=== PATIENT | male | born 1955 | race Caucasian/White ===

== ENCOUNTER 2019-09-03 10:25 | Inpatient (IN) | payer OTHER ==
[2019-09-03] MEDS ORDERED: HEPARIN SODIUM,PORCINE 5,000 UNIT/ML 1 ML VIAL IV ONE (10:46)
[2019-09-03] MEDS ORDERED: DILTIAZEM DRIP BOLUS FROM BAG 1 MG SOLN IV ONE (10:48)
--- NOTE | 2019-09-03 10:49 | ED ---
Arrhythmia/Palpitations HPI - General Chief Complaint: Arrhythmia/Palpitations Stated Complaint: Afib Time Seen by Provider: 09/03/19 10:36 Source: patient, RN notes reviewed Mode of arrival: wheelchair Limitations: no limitations - History of Present Illness Initial Comments: 64-year-old male presents emergency Department chief complaint of A. fib. Jessica arzate was seen by PCP today and sent emergency from it for new-onset A. fib with RVR. Patient states Kali 10 days ago he noticed that he had a some cough, dizziness and some shortness of breath. Patient states that he does felt that he and upper respiratory infection. Patient noticed that he's had exertional dyspnea. Patient does admit that he's had history of hypertension states he went for refill of his medication has not been on his medications. He did have some chest discomfort that day for 10 days ago. He has no other complaints at this time. Patient denies current chest pain, palpitations, headache, blurred vision. - Related Data Home Medications Medication Instructions Recorded Confirmed Ibuprofen [Motrin Ib] 1,000 mg PO DAILY 09/03/19 09/03/19 Allergies Allergy/AdvReac Type Severity Reaction Status Date / Time No Known Allergies Allergy Unverified 09/03/19 10:59 Review of Systems ROS Statement: Those systems with pertinent positive or pertinent negative responses have been documented in the HPI. ROS Other: All systems not noted in ROS Statement are negative. Past Medical History Past Medical History: Atrial Fibrillation, Hypertension History of Any Multi-Drug Resistant Organisms: None Reported Additional Past Surgical History / Comment(s): finger amputation Past Psychological History: No Psychological Hx Reported Smoking Status: Never smoker Past Alcohol Use History: Heavy, Occasional Past Drug Use History: None Reported General Exam Limitations: no limitations General appearance: alert, in no apparent distress Head exam: Present: atraumatic, normocephalic, normal inspection Eye exam: Present: normal appearance, PERRL, EOMI. Absent: scleral icterus, conjunctival injection, periorbital swelling ENT exam: Present: normal exam, normal oropharynx, mucous membranes moist Neck exam: Present: normal inspection, full ROM. Absent: tenderness, meningismus, lymphadenopathy Respiratory exam: Present: normal lung sounds bilaterally. Absent: respiratory distress, wheezes, rales, rhonchi, stridor Cardiovascular Exam: Present: tachycardia, irregular rhythm, normal heart sounds. Absent: regular rate, normal rhythm, systolic murmur, diastolic murmur, rubs, gallop, clicks GI/Abdominal exam: Present: soft, normal bowel sounds. Absent: distended, tenderness, guarding, rebound, rigid Course Vital Signs 09/03/19 09/03/19 09/03/19 10:29 11:30 11:51 Temperature 98.1 F Pulse Rate 125 H 134 H 124 H Respiratory 18 19 20 Rate Blood Pressure 173/126 134/111 125/100 O2 Sat by Pulse 94 L 97 97 Oximetry 09/03/19 09/03/19 09/03/19 12:00 12:10 12:20 Temperature Pulse Rate 108 H 118 H 124 H Respiratory 22 24 22 Rate Blood Pressure 125/100 133/122 117/104 O2 Sat by Pulse Oximetry EKG Findings - EKG Comments: EKG Findings:: EKG interpreted by me performed at 10:46 A. fib with RVR rate of 148 QRS 84 QT/QTC 354/555 Medical Decision Making - Medical Decision Making 64-year-old male presented for palpitations. Patient be admitted for A. fib RVR with cardiology consult. - Lab Data Result diagrams: 09/03/19 10:30 09/03/19 10:30 Lab Results 09/03/19 09/03/19 09/03/19 Range/Units 10:30 10:30 10:30 WBC 6.8 (3.8-10.6) k/uL RBC 4.18 L (4.30-5.90) m/uL Hgb 15.0 (13.0-17.5) gm/dL Hct 44.7 (39.0-53.0) % MCV 106.9 H (80.0-100.0) fL MCH 35.8 H (25.0-35.0) pg MCHC 33.5 (31.0-37.0) g/dL RDW 14.0 (11.5-15.5) % Plt Count 203 (150-450) k/uL Neutrophils % 73 % Lymphocytes % 16 % Monocytes % 7 % Eosinophils % 2 % Basophils % 1 % Neutrophils # 4.9 (1.3-7.7) k/uL Lymphocytes # 1.1 (1.0-4.8) k/uL Monocytes # 0.5 (0-1.0) k/uL Eosinophils # 0.1 (0-0.7) k/uL Basophils # 0.0 (0-0.2) k/uL Macrocytosis Moderate PT 12.2 H (9.0-12.0) sec INR 1.2 H (<1.2) APTT 23.4 (22.0-30.0) sec Sodium 140 (137-145) mmol/L Potassium 4.2 (3.5-5.1) mmol/L Chloride 105 (98-107) mmol/L Carbon Dioxide 24 (22-30) mmol/L Anion Gap 11 mmol/L BUN 20 (9-20) mg/dL Creatinine 0.76 (0.66-1.25) mg/dL Est GFR (CKD-EPI)AfAm >90 (>60 ml/min/1.73 sqM) Est GFR (CKD-EPI)NonAf >90 (>60 ml/min/1.73 sqM) Glucose 120 H (74-99) mg/dL Calcium 9.5 (8.4-10.2) mg/dL Magnesium 1.6 (1.6-2.3) mg/dL Total Bilirubin 1.6 H (0.2-1.3) mg/dL AST 59 (17-59) U/L ALT 67 (21-72) U/L Alkaline Phosphatase 87 (38-126) U/L Troponin I (0.000-0.034) ng/mL NT-Pro-B Natriuret Pep pg/mL Total Protein 7.8 (6.3-8.2) g/dL Albumin 4.1 (3.5-5.0) g/dL 09/03/19 09/03/19 Range/Units 10:30 10:30 WBC (3.8-10.6) k/uL RBC (4.30-5.90) m/uL Hgb (13.0-17.5) gm/dL Hct (39.0-53.0) % MCV (80.0-100.0) fL MCH (25.0-35.0) pg MCHC (31.0-37.0) g/dL RDW (11.5-15.5) % Plt Count (150-450) k/uL Neutrophils % % Lymphocytes % % Monocytes % % Eosinophils % % Basophils % % Neutrophils # (1.3-7.7) k/uL Lymphocytes # (1.0-4.8) k/uL Monocytes # (0-1.0) k/uL Eosinophils # (0-0.7) k/uL Basophils # (0-0.2) k/uL Macrocytosis PT (9.0-12.0) sec INR (<1.2) APTT (22.0-30.0) sec Sodium (137-145) mmol/L Potassium (3.5-5.1) mmol/L Chloride (98-107) mmol/L Carbon Dioxide (22-30) mmol/L Anion Gap mmol/L BUN (9-20) mg/dL Creatinine (0.66-1.25) mg/dL Est GFR (CKD-EPI)AfAm (>60 ml/min/1.73 sqM) Est GFR (CKD-EPI)NonAf (>60 ml/min/1.73 sqM) Glucose (74-99) mg/dL Calcium (8.4-10.2) mg/dL Magnesium (1.6-2.3) mg/dL Total Bilirubin (0.2-1.3) mg/dL AST (17-59) U/L ALT (21-72) U/L Alkaline Phosphatase (38-126) U/L Troponin I 0.033 (0.000-0.034) ng/mL NT-Pro-B Natriuret Pep 1540 pg/mL Total Protein (6.3-8.2) g/dL Albumin (3.5-5.0) g/dL Critical Care Time Critical Care Time: Yes Total Critical Care Time: 35 Critical Care Time: Total 35 minutes of critical care time were used to initially evaluate the patient, reviewed past medical history, review EKG. Patient had labs, x-rays ordered. Patient found to be in A. fib with RVR, heparin low-dose was ordered including bolus, bolus of Cardizem of 10, Cardizem drip were ordered. Patient we given Lasix that he has mild pleural effusions. Patient's case discussed with attending physician and admitting physician Disposition Clinical Impression: Atrial fibrillation with RVR Disposition: ADMITTED IP TO THIS HOSP Condition: Fair Referrals: Chico Castillo DO [Primary Care Provider] - 1-2 days
[2019-09-03 11:06] LABS: Basophils % (A) 1 %; Eosinophils # (A) 0.1 k/uL (0-0.7); Eosinophils % (A) 2 %; HCT 44.7 % (39.0-53.0); Lymphocytes # (A) 1.1 k/uL (1.0-4.8); Lymphocytes % (A) 16 %; MCH 35.8 pg (25.0-35.0); MCHC 33.5 g/dL (31.0-37.0); MCV 106.9 fL (80.0-100.0); Macrocytosis Moderate; Mean Platelet Volume 7.2; Monocytes # (A) 0.5 k/uL (0-1.0); Monocytes % (A) 7 %; Neutrophils # (A) 4.9 k/uL (1.3-7.7); Neutrophils % (A) 73 %; Platelet Count 203 k/uL (150-450); RBC 4.18 m/uL (4.30-5.90); WBC 6.8 k/uL (3.8-10.6)
[2019-09-03 11:14] LABS: INR 1.2 (<1.2); Partial Thromboplastin Time 23.4 sec (22.0-30.0); Prothrombin Time 12.2 sec (9.0-12.0)
[2019-09-03 11:15] LABS: ALT 67 U/L (21-72); AST 59 U/L (17-59); African American GFR (CKD) >90 (>60 ml/min/1.73 sqM); Albumin 4.1 g/dL (3.5-5.0); Alkaline Phosphatase 87 U/L (38-126); Anion Gap 11 mmol/L; Blood Urea Nitrogen 20 mg/dL (9-20); Calcium 9.5 mg/dL (8.4-10.2); Carbon Dioxide 24 mmol/L (22-30); Chloride 105 mmol/L (98-107); Glucose 120 mg/dL (74-99); Magnesium 1.6 mg/dL (1.6-2.3); Potassium 4.2 mmol/L (3.5-5.1); Sodium 140 mmol/L (137-145); Total Bilirubin 1.6 mg/dL (0.2-1.3); Total Protein 7.8 g/dL (6.3-8.2)
--- NOTE | 2019-09-03 11:16 | XR ---
EXAMINATION TYPE: XR chest 2V DATE OF EXAM: 09/03/2019 COMPARISON: NONE HISTORY: Abnormal EKG TECHNIQUE: Frontal and lateral views of the chest are obtained. FINDINGS: There is no focal air space opacity, pulmonary vascular congestion, or pneumothorax seen. Trace bilateral pleural effusions are seen with minimal interstitial edema. The cardiac silhouette s ize is mildly enlarged. The osseous structures are intact. IMPRESSION: Trace pleural effusions, minimal interstitial edema, and enlarged cardiac mediastinal si lhouette. Findings favor decompensated congestive heart failure.
[2019-09-03] MEDS: DILTIAZEM 125 MG in SODIUM CHLORIDE 0.9% 100 ML IV SCH ×2 (11:36→23:12)
[2019-09-03] MEDS: HEPARIN SOD,PORK IN 0.45% NACL 25,000 UNIT in 0.45% NACL 1 250ML.BAG IV SCH (11:40)
[2019-09-03] MEDS ORDERED: ONDANSETRON 4 MG/2 ML VIAL IVP PRN (12:38)
[2019-09-03] MEDS ORDERED: NALOXONE 0.4 MG/ML 1 ML VIAL IV PRN (12:38)
[2019-09-03] MEDS ORDERED: FUROSEMIDE 10 MG/ML 4 ML VIAL IV STA (12:39)
[2019-09-03] MEDS: ACETAMINOPHEN TAB 325 MG TAB PO PRN (18:29)
[2019-09-03] MEDS: HEPARIN SODIUM,PORCINE 5,000 UNIT/ML 1 ML VIAL IV PRN (21:23)
[2019-09-04] MEDS: HEPARIN SOD,PORK IN 0.45% NACL 25,000 UNIT in 0.45% NACL 1 250ML.BAG IV SCH (07:46)
[2019-09-04] MEDS: HEPARIN SODIUM,PORCINE 5,000 UNIT/ML 1 ML VIAL IV PRN (08:00)
[2019-09-04] MEDS ORDERED: Potassium Replacement Protocol 1 EACH MISC MISCELLANE PRN ×2 (08:37→15:25)
[2019-09-04] MEDS ORDERED: Magnesium Replacement Protocol 1 EACH MISC MISCELLANE PRN (08:37)
[2019-09-04] MEDS: METOPROLOL SUCCINATE (ER) 50 MG TAB.ER.24H PO SCH (09:28)
[2019-09-04] MEDS: DILTIAZEM 125 MG in SODIUM CHLORIDE 0.9% 100 ML IV SCH ×2 (10:15→20:15)
--- NOTE | 2019-09-04 11:00 | ECHOF ---
Referral Reason:afib MEASUREMENTS -------- HEIGHT: 182.9 cm WEIGHT: 148.8 kg BP: RVIDd: 3.1 cm (< 3.3) IVSd: 1.2 cm (0.6 - 1.1) LVIDd: 4.5 cm (3.9 - 5.3) LVPWd: 1.4 cm (0.6 - 1.1) IVSs: 1.5 cm LVIDs: 3.4 cm LVPWs: 1.7 cm Ao Diam: 2.7 cm (2.0 - 3.7) AV Cusp: 1.2 cm (1.5 - 2.6) LA Diam: 3.8 cm (2.7 - 3.8) MV EXCURSION: 14.382 mm (> 18.000) MV EF SLOPE: 113 mm/s (70 - 150) EPSS: 1.1 cm AV maxP.41 mmHg AV meanP.32 mmHg RAP: 5.00 mmHg RVSP: 21.33 mmHg FINDINGS -------- Atrial fibrillation. This was a technically difficult study with suboptimal views. The left ventricular size is normal. There is mild concentric left ventricular hypertrophy. Overa ll left ventricular systolic function is low-normal with, an EF between 50 - 55 %. The right ventricle is normal in size. The left atrium is moderately dilated. The right atrial size is normal. Lumason used Aortic valve is trileaflet and is moderately thickened. Cannot assess stenosis. probably not severe. The mitral valve was not well visualized. The tricuspid valve was not well visualized. The pulmonic valve was not well visualized. The aortic root size is normal. IVC Not well visulized. There is no pericardial effusion. CONCLUSIONS -------- 1. Atrial fibrillation. 2. This was a technically difficult study with suboptimal views. 3. The left ventricular size is normal. 4. There is mild concentric left ventricular hypertrophy. 5. Overall left ventricular systolic function is low-normal with, an EF between 50 - 55 %. 6. The right ventricle is normal in size. 7. The left atrium is moderately dilated. 8. The right atrial size is normal. 9. Lumason used 10. Aortic valve is trileaflet and is moderately thickened. 11. The mitral valve was not well visualized. 12. The tricuspid valve was not well visualized. 13. The pulmonic valve was not well visualized. 14. The aortic root size is normal. 15. IVC Not well visulized. 16. There is no pericardial effusion. [employer] HEAD ASSISTANT: Catalina Ragland RDCS
--- NOTE | 2019-09-04 14:49 | CONS ---
CONSULTATION CHIEF COMPLAINT: Exertional shortness of breath, fatigue and tiredness. Mr. Tilley is a 64-year-old gentleman with no significant past medical history who presented to his primary care physician, Dr. Castillo with symptoms of exertional shortness of breath for the last 10 days. He initially thought he had a flu-like illness and had cough and some productive sputum, but subsequently became quite short of breath with very little activity. This went on for more than a week, went to Dr. Castillo and he was found to be in atrial fibrillation with rapid ventricular rate and had been sent to hospital for further care. At the time of my evaluation this morning, patient appears comfortable at rest. Denies chest pain or difficulty in breathing. He does not have any palpitations. There is no prior history of coronary artery disease, congestive heart failure, or cardiac arrhythmia. There is no history of focal neurological deficits. The patient has had on and off history of hypertension and had been on medications in the past which he stopped taking. PAST MEDICAL HISTORY: Negative for diabetes, dyslipidemia. MEDICATIONS: At home include ibuprofen. ALLERGIES: There are no known drug allergies. FAMILY HISTORY: Significant for hypertension. SOCIAL HISTORY: Negative for current smoking, is significant for drinking. There is no history of drug abuse. REVIEW OF SYSTEMS: HEENT: Unremarkable. CARDIAC: As described above. RESPIRATORY: As described above. GI: Negative. GENITOURINARY: Negative. ALLERGY/IMMUNOLOGY: Negative. SKIN: Negative. MUSCULOSKELETAL: Negative. ENDOCRINE: Negative. CONSTITUTIONAL: Negative. ONCOLOGICAL: Negative. Rest of the system review is not relevant. PHYSICAL EXAM: Patient is comfortable at rest. Afebrile. Heart rate is 103 beats per minute. Blood pressure is 118/83, respiratory rate is 18. Chest exam reveals diminished air entry at the bases. Heart exam reveals first and second heart sounds, irregular rhythm. No murmur. Abdomen is soft, nontender. Exam of extremities did not reveal any edema. Peripheral pulses are felt. NEUROSURGEON exam did not reveal focal neurological deficits. LABS: Show a hemoglobin of 15, platelet count of 203. Potassium is 4.2, creatinine is 0.76. BNP is elevated at 1540. Troponin is negative. Creatinine is 0.76. ASSESSMENT: 1. Persistent atrial fibrillation. 2. History of hypertension. PLAN: I am going to obtain a 2D echo on him to assess his LV function. If his LV function is normal, I am going to start him on Rythmol or flecainide. Continue the IV heparin and start him on beta blockers and once the heart rate is well controlled. Stop the IV Cardizem. The patient will need anticoagulation currently on heparin and if he is covered, I will start him either on Xarelto are Eliquis. I will obtain and once heart rate is well controlled. We will discharge him home and if he is still in atrial fibrillation, we will consider EFRAÍN with cardioversion. We will check a TSH on him. MMODL / IJN: [id number] /
--- NOTE | 2019-09-04 15:43 | P.HPIM ---
History of Present Illness H&P Date: 09/04/19 Chief Complaint: New onset atrial fibrillation This is 64-year-old gentleman with medical history of hypertension, hypercholesterol, degenerative disc disease, alcohol abuse, nicotine dependence and multiple other medical issues. Patient was sent to the ER from PCPs office related to new onset atrial fibrillation with RVR. Patient reports he did not been feeling well for 10 days with accompanying chest discomfort, weakness, exertional shortness of breath, occasional cough, dizziness, wheezing and proceeded to PCPs office. Patient apparently had been taking his antihy pertensives as well. EKG performed in office reporting atrial fibrillation with heart rates up into the 150s. Currently denies chest pain, palpitations. Denies lightheadedness dizziness or focal deficits. EKG in the ER reported atrial fibrillation with rapid ventricular rate, 148. Chest x-ray reporting trace pleural effusions, minimal interstitial edema, CHF.Cardiology consulted. Cardizem and heparin drips initiated. Scheduled Lasix IV push added to med regime. Hemoglobin 15, MCV elevated 106.9. INR 1.2, T bili 1.6. Troponin 0.033. TSH 2.22. Afebrile, normal WBC. Review of Systems ROS Statement: Those systems with pertinent positive or pertinent negative responses have been documented in the HPI. ROS Other: All systems not noted in ROS Statement are negative. Past Medical History Past Medical History: Hypertension Additional Past Medical History / Comment(s): Elevated cholesterol but not placed on medications yet, generalized pain, DDD. History of Any Multi-Drug Resistant Organisms: None Reported Past Surgical History: Orthopedic Surgery Additional Past Surgical History / Comment(s): L hand index finger amputation, R arm fracture with plate. Past Anesthesia/Blood Transfusion Reactions: No Reported Reaction Smoking Status: Never smoker - Past Family History Father Family Medical History: Cancer Additional Family Medical History / Comment(s): Father of lung cancer at age 55 or 56yrs. 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 Mother Family Medical History: AFIB, Cancer Additional Family Medical History / Comment(s): Mother of recurrent breast cancer at the age of 83 yrs. Medications and Allergies Home Medications Medication Instructions Recorded Confirmed Type Ibuprofen [Motrin Ib] 1,000 mg PO DAILY 09/03/19 09/03/19 History Allergies Allergy/AdvReac Type Severity Reaction Status Date / Time No Known Allergies Allergy Unverified 09/03/19 10:59 Physical Exam Vitals: Vital Signs Temp Pulse Pulse Resp BP BP Pulse Ox 09/04/19 07:45 98.1 F 103 H 18 118/83 93 L 09/04/19 04:00 98.0 F 80 18 163/99 93 L 09/04/19 00:00 98.0 F 97 18 147/78 91 L 09/03/19 20:00 98.2 F 111 H 18 141/95 93 L 09/03/19 16:00 98.7 F 110 H 18 158/112 95 09/03/19 14:45 98.8 F 112 H 18 142/109 95 09/03/19 14:20 108 H 20 146/103 09/03/19 14:11 113 H 18 143/103 99 09/03/19 13:40 141 H 20 166/119 09/03/19 13:20 123 H 20 147/112 09/03/19 13:00 112 H 18 129/99 09/03/19 12:40 116 H 23 131/113 09/03/19 12:20 124 H 22 117/104 09/03/19 12:10 118 H 24 133/122 09/03/19 12:00 108 H 22 125/100 09/03/19 11:51 124 H 20 125/100 97 09/03/19 11:30 134 H 19 134/111 97 09/03/19 10:29 98.1 F 125 H 18 173/126 94 L Intake and Output 09/03/19 09/04/19 09/04/19 22:59 06:59 14:59 Intake Total 334.657 262.010 240 Output Total 450 800 Balance -115.343 -537.990 240 Intake: Intake, IV Titration 94.657 262.010 Amount Diltiazem 125 mg In 106.667 Sodium Chloride 0.9% 100 ml @ 5 MG/HR 5 mls/hr IV .Q24H [facility] Rx#:[id number] Heparin Sod,Pork in 0.45% 94.657 155.343 NaCl 25,000 unit In 0.45 % NaCl 1 250ml.bag @ 6.6 UNITS/KG/HR 9.999 mls/hr IV .Q24H [facility] Rx#: [id number] Oral 240 240 Output: Urine 450 800 Other: Voiding Method Toilet Toilet Urinal Urinal Weight 149.1 kg PHYSICAL EXAM: VITAL SIGNS: [As above] GENERAL: Sitting up in bed, no acute distress HEENT: Conjunctivae normal. eyes normal. Oral mucosa moist NECK: No JVD. No thyroid enlargement. No LNs CARDIOVASCULAR: S1, S2 irregular, No murmur, rubs or gallops. RESPIRATION: Breath sounds diminished in the bases. No rhonchi or crackles. No bronchial breathing. ABDOMEN: Soft, nontender . No guarding. no masses palpable. No ascites, No he patosplenomegaly.Bowel sounds heard. LEGS: No edema. no swelling PSYCHIATRY: Alert and oriented X3, mood and affect normal. NERVOUS SYSTEM: Cranial N 2-12 grossly normal. Moves all 4 limbs. No focal deficits. Strength and sensation grossly intact.. Skin: no lesions, no rash Results CBC & Chem 7: 09/03/19 10:30 09/03/19 10:30 Labs: Abnormal Lab Results - Last 24 Hours (Table) 09/03/19 09/03/19 09/03/19 Range/Units 10:30 10:30 10:30 RBC 4.18 L (4.30-5.90) m/uL MCV 106.9 H (80.0-100.0) fL MCH 35.8 H (25.0-35.0) pg PT 12.2 H (9.0-12.0) sec INR 1.2 H (<1.2) APTT (22.0-30.0) sec Glucose 120 H (74-99) mg/dL Total Bilirubin 1.6 H (0.2-1.3) mg/dL 09/04/19 09/04/19 Range/Units 00:17 05:59 RBC (4.30-5.90) m/uL MCV (80.0-100.0) fL MCH (25.0-35.0) pg PT (9.0-12.0) sec INR (<1.2) APTT 32.0 H 41.1 H (22.0-30.0) sec Glucose (74-99) mg/dL Total Bilirubin (0.2-1.3) mg/dL Thrombosis Risk Factor Assmnt - Choose All That Apply Any of the Below Risk Factors Present?: Yes Each Factor Represents 1 point: Obesity (BMI >25) Other Risk Factors: Yes Each Risk Factor Represents 2 Points: Age 61-74 years Other congenital or acquired thrombophilia - If yes, enter type in comment: No Thrombosis Risk Factor Assessment Total Risk Factor Score: 3 Thrombosis Risk Factor Assessment Level: Moderate Risk Assessment and Plan Assessment: -New-onset persistent A. fib with RVR -Hypertension -Hyperlipidemia -Alcohol abuse -Nicotine dependence Plan: Continue on current medication regime ,monitoring and symptomatically treatment. Home meds have been reviewed and resumed accordingly. Echo ordered. Maintain Cardizem, heparin drips, IV push Lasix-cardiology evaluation in progress with further recommendations pending. The impression and plan of care has been dictated as directed. : I performed a history and examination of this patient, discussed the same with the dictator. I agree with the dictator's note ,documented as a scribe. Any additional findings or plans will be noted.
[2019-09-04] MEDS: APIXABAN 5 MG TAB PO SCH (20:53)
[2019-09-04] MEDS: ACETAMINOPHEN TAB 325 MG TAB PO PRN (20:57)
[2019-09-05 06:39] LABS: Basophils % (A) 1 %; Eosinophils # (A) 0.1 k/uL (0-0.7); Eosinophils % (A) 3 %; HCT 42.6 % (39.0-53.0); Lymphocytes % (A) 22 %; MCH 35.6 pg (25.0-35.0); MCHC 32.8 g/dL (31.0-37.0); MCV 108.6 fL (80.0-100.0); Macrocytosis Marked; Mean Platelet Volume 7.2; Monocytes # (A) 0.3 k/uL (0-1.0); Monocytes % (A) 7 %; Neutrophils # (A) 2.9 k/uL (1.3-7.7); Neutrophils % (A) 65 %; Platelet Count 174 k/uL (150-450); RBC 3.92 m/uL (4.30-5.90); RDW 14.1 % (11.5-15.5); WBC 4.5 k/uL (3.8-10.6)
[2019-09-05 06:53] LABS: African American GFR (CKD) >90 (>60 ml/min/1.73 sqM); Anion Gap 9 mmol/L; Blood Urea Nitrogen 17 mg/dL (9-20); Calcium 9.2 mg/dL (8.4-10.2); Carbon Dioxide 27 mmol/L (22-30); Chloride 102 mmol/L (98-107); Glucose 176 mg/dL (74-99); Magnesium 1.8 mg/dL (1.6-2.3); Potassium 3.9 mmol/L (3.5-5.1); Sodium 138 mmol/L (137-145)
[2019-09-05 07:06] LABS: Anisocytosis (M) Present
[2019-09-05 07:07] LABS: Polychromasia Present
[2019-09-05 07:08] LABS: Large Platelets Present
[2019-09-05] MEDS: METOPROLOL SUCCINATE (ER) 50 MG TAB.ER.24H PO SCH (08:26)
[2019-09-05] MEDS: APIXABAN 5 MG TAB PO SCH ×2 (08:26→20:40)
[2019-09-05] MEDS: PROPAFENONE 150 MG TAB PO SCH ×3 (09:30→22:13)
--- NOTE | 2019-09-05 12:10 | PN ---
PROGRESS NOTE Yaakov is a 64-year-old gentleman who is admitted to hospital with persistent atrial fibrillation. This morning, patient remains in atrial fibrillation with controlled ventricular rate. He denies chest pain, difficulty in breathing, palpitations, dizziness or syncope. An echocardiogram shows normal LV systolic function without significant left ventricular hypertrophy. He is on Eliquis 5 b.i.d. and Toprol-XL 50 mg daily. I am starting him on Rythmol 150 q.8 hours and I will watch him overnight and obtain an EKG tomorrow morning. If he is doing well, he can be discharged home with outpatient followup. If he converts to sinus rhythm with propafenone, that is well and good. If not, we will do EFRAÍN cardioversion. PHYSICAL EXAM: He is comfortable at rest. Vital signs are stable. There is no jugular venous distention. Chest exam reveals good air entry bilaterally. Heart exam reveals first and second heart sounds, no gallop, irregular rhythm. Abdomen is soft. Exam of extremities did not reveal any edema. Peripheral pulses are felt. Will do an EKG on this patient. If not, he will need a EFRAÍN cardioversion. MMODL / IJN: [id number] /
--- NOTE | 2019-09-05 16:28 | P.PN ---
Subjective Progress Note Date: 09/05/19 This is 64-year-old gentleman with medical history of hypertension, hypercholesterol, degenerative disc disease, alcohol abuse, nicotine dependence and multiple other medical issues. Patient was sent to the ER from PCPs office related to new onset atrial fibrillation with RVR. Patient reports he did not been feeling well for 10 days with accompanying chest discomfort, weakness, exertional shortness of breath, occasional cough, dizziness, wheezing and proceeded to PCPs office. Patient apparently had been taking his antihypertensives as well. EKG performed in office reporting atrial fibrillation with heart rates up into the 150s. Currently denies chest pain, palpitations. Denies lightheadedness dizziness or focal deficits. EKG in the ER reported atrial fibrillation with rapid ventricular rate, 148. Chest x-ray reporting trace pleural effusions, minimal interstitial edema, CHF.Cardiology consulted. Cardizem and heparin drips initiated. Scheduled Lasix IV push added to med regime. Hemoglobin 15, MCV elevated 106.9. INR 1.2, T bili 1.6. Troponin 0.033. TSH 2.22. Afebrile, normal WBC. 09/05/2019 telemetry reporting controlled atrial fibrillation. Echo suboptimal, reporting low normal LV function, EF 50-55%. Denies chest pain, palpitations or shortness of breath. Good diet intake with no nausea vomiting or diarrhea. Denies lightheadedness, dizziness or focal deficits. Maintained on beta mattie. Converted to oral anticoagulation with Eliquis. Cardizem drip being discontinued with Rythmol initiated.VSS. Objective - Vital Signs Vital signs: Vital Signs Temp 98.0 F 09/05/19 04:00 Pulse 76 09/05/19 04:00 Resp 18 09/05/19 04:00 BP 128/82 09/05/19 04:00 Pulse Ox 92 L 09/05/19 04:00 Intake & Output 09/04/19 09/05/19 09/05/19 18:59 06:59 18:59 Intake Total 1050.5 100 Output Total 100 Balance 950.5 100 Weight 105.8 kg Intake: IV 256 Diltiazem 125 mg In 80 Sodium Chloride 0.9% 100 ml @ 5 MG/HR 5 mls/hr IV .Q24H [facility] Rx#:[id number] Heparin Sod,Pork in 0.45% 176 NaCl 25,000 unit In 0.45 % NaCl 1 250ml.bag @ 6.6 UNITS/KG/HR 9.999 mls/hr IV .Q24H [facility] Rx#: [id number] Intake, IV Titration 110.5 100 Amount Diltiazem 125 mg In 110.5 100 Sodium Chloride 0.9% 100 ml @ 5 MG/HR 5 mls/hr IV .Q24H [facility] Rx#:[id number] Oral 684 Output: Urine 100 Other: Voiding Method Toilet Toilet Urinal Urinal # Voids 2 1 - Exam VITAL SIGNS: [As above] GENERAL: Sitting up in chair, no acute distress HEENT: Conjunctivae normal. eyes normal. Oral mucosa moist NECK: No JVD. No thyroid enlargement. No LNs CARDIOVASCULAR: S1, S2 irregular, No murmur, rubs or gallops. RESPIRATION: Breath sounds diminished in the bases. No rhonchi or crackles. No bronchial breathing. ABDOMEN: Soft, nontender . No guarding. no masses palpable. Bowel sounds heard. LEGS: No edema. no swelling PSYCHIATRY: Alert and oriented X3, mood and affect normal. NERVOUS SYSTEM: Cranial N 2-12 grossly normal. Moves all 4 limbs. No focal deficits. Strength and sensation grossly intact.. Skin: no lesions, no rash, no clubbing, no cyanosis. - Labs CBC & Chem 7: 09/05/19 05:57 09/05/19 05:57 Labs: Abnormal Lab Results - Last 24 Hours (Table) 09/04/19 09/05/19 09/05/19 Range/Units 13:57 05:57 05:57 RBC 3.92 L (4.30-5.90) m/uL MCV 108.6 H (80.0-100.0) fL MCH 35.6 H (25.0-35.0) pg Macrocytosis Marked A APTT 51.9 H (22.0-30.0) sec Glucose 176 H (74-99) mg/dL Assessment and Plan Assessment: -New-onset persistent A. fib with RVR, currently controlled ventricular rate. -Hypertension -Hyperlipidemia -Alcohol abuse -Nicotine dependence Plan: Continue on current medication regime , Eliquis, Toprol,RYTHMOL,monitoring and symptomatically treatment. Antiarrhythmics/anticoagulation as per cardiology. Potential EFRAÍN with cardioversion being discussed by cardiology, patient does not convert. Discharge planning in progress for tomorrow pending cardiology clearance. The impression and plan of care has been dictated as directed. : I performed a history and examination of this patient, discussed the same with the dictator. I agree with the dictator's note ,documented as a scribe. Any additional findings or plans will be noted.
[2019-09-05] MEDS: ACETAMINOPHEN TAB 325 MG TAB PO PRN (16:35)
[2019-09-06 06:42] LABS: African American GFR (CKD) >90 (>60 ml/min/1.73 sqM); Anion Gap 8 mmol/L; Blood Urea Nitrogen 19 mg/dL (9-20); Calcium 9.5 mg/dL (8.4-10.2); Carbon Dioxide 28 mmol/L (22-30); Chloride 102 mmol/L (98-107); Glucose 110 mg/dL (74-99); Potassium 4.4 mmol/L (3.5-5.1); Sodium 138 mmol/L (137-145)
[2019-09-06] MEDS: APIXABAN 5 MG TAB PO SCH ×2 (09:09→20:56)
[2019-09-06] MEDS: PROPAFENONE 150 MG TAB PO SCH ×3 (09:09→23:25)
[2019-09-06] MEDS: ACETAMINOPHEN TAB 325 MG TAB PO PRN (09:10)
[2019-09-06] MEDS: METOPROLOL SUCCINATE (ER) 50 MG TAB.ER.24H PO SCH (09:10)
[2019-09-06] MEDS ORDERED: PROPAFENONE 225 MG TAB PO STA (12:25)
--- NOTE | 2019-09-06 13:48 | P.PN ---
Subjective Progress Note Date: 09/06/19 This is a 64-year-old male admitted to hospital due to persistent atrial fibrillation, new onset. He is currently in a controlled rate. Initially started on Toprol-XL at 50 mg daily and yesterday Rythmol 150 mg every 8 hour was added. Repeat EKG this morning is A. fib at a rate of 98. Patient had a run of 6 beats a wide QRS probable aberrancies this morning. Around the same time, patient was complaining of feeling malaise. Patient denies any lightheadedness or dizziness, no chest pain or shortness of breath. He states he has been ambulating well in the room and briefly in the hallway without any symptoms. Gen: This is a 64-year-old male, morbid obese, resting in chair and appears comfortable and in no acute distress. HEENT: Head is atraumatic, normocephalic. Pupils equal, round. Sclerae is anicteric. NECK: Supple. No JVD. No lymphadenopathy. No thyromegaly. LUNGS: Clear to auscultation. No wheezes or rhonchi. No intercostal retractions. HEART: Irregular rate and rhythm. No murmur. ABDOMEN: Soft. Bowel sounds are present. No masses. No tenderness. EXTREMITIES: No pedal edema. No calf tenderness. NEUROLOGICAL: Patient is awake, alert and oriented x3. Cranial nerves 2 through 12 are grossly intact. Assessment: Persistent atrial fibrillation, controlled rate Normal LV systolic function without left ventricular hypertrophy Hypertension Hyper lipidemia Tobacco use and dependence Alcohol abuse Degenerative disc disease Plan: Start IV fluids 0.9 normal saline at 75 mL/h At patient's next scheduled dose of Rythmol, increased Rythmol to 450 mg 1 dose Continue Rythmol 150 mg every 8 hours Discontinue metoprolol succinate and start metoprolol tartrate 25 mg 3 times daily Continue eliquis 5 mg twice daily Anticipate discharge home tomorrow Further recommendations based on patient's clinical course Nurse practitioner note has been reviewed, I agree with documented findings and plan of care. Patient was seen and examined. Objective - Vital Signs Vital signs: Vital Signs Temp 97.7 F 09/06/19 08:00 Pulse 88 09/06/19 08:00 Resp 19 09/06/19 08:00 BP 123/84 09/06/19 08:00 Pulse Ox 96 09/06/19 08:00 Intake & Output 09/05/19 09/06/19 09/06/19 18:59 06:59 18:59 Intake Total 480 Output Total 350 Balance 130 Weight 151.7 kg Intake: Oral 480 Output: Urine 350 Other: Voiding Method Toilet Urinal # Voids 1 1 - Labs CBC & Chem 7: 09/05/19 05:57 09/06/19 05:56 Labs: Abnormal Lab Results - Last 24 Hours (Table) 09/06/19 Range/Units 05:56 Glucose 110 H (74-99) mg/dL
[2019-09-06] MEDS: SODIUM CHLORIDE 0.9% 1,000 ML IV SCH (15:12)
--- NOTE | 2019-09-06 21:12 | PN ---
PROGRESS NOTE DATE OF SERVICE: 09/06/2019 This is a progress note. I am covering for Dr. Castillo. This 64-year-old gentleman with a past medical history of multiple problems admitted with atrial fibrillation with rapid ventricular rate. New onset. Today the patient also had nonsustained tachycardia about. Cardiology following the patient. Rythmol has been initiated. No chest pain. No palpitations. No fever. PHYSICAL EXAM: Alert and oriented x3. Pulse 98. Blood pressure 129/79, respiration 18, temperature 97.5, pulse ox 93% on room air. HEENT: Conjunctivae normal. NECK: No jugular venous distention. No carotid bruit. CARDIOVASCULAR SYSTEM: S1, S2 muffled. RESPIRATORY: Breath sounds diminished in the bases. No rhonchi. No crackles. ABDOMEN: Soft, nontender. No mass palpable. LEGS: No edema. No swelling. NERVOUS SYSTEM: No focal deficits. LABS: WBC 4.2, hemoglobin 14, and sodium 138, potassium 4.4, magnesium 1.9. ASSESSMENT: 1. New onset atrial fibrillation, rapid ventricular rate, rate controlled. 2. Nonsustained ventricular tachycardia. 3. Hypertension. 4. Hyperlipidemia. 5. History of ETOH abuse. 6. History of nicotine dependence. RECOMMENDATIONS AND DISCUSSION: Recommend to continue current medications, management and symptomatic treatment. Check magnesium, Rythmol. Otherwise, continue with beta blockers. Closely follow with Cardiology. Guarded prognosis. Further recommendations to follow. MMODL / IJN: [id number] / MTDD
[2019-09-06] MEDS ORDERED: MAGNESIUM SULFATE-D5W PMX 1 GM in DEXTROSE/WATER 1 100ML.BAG IVPB ONE (21:20)
[2019-09-07] MEDS: SODIUM CHLORIDE 0.9% 1,000 ML IV SCH (06:24)
[2019-09-07 07:16] LABS: African American GFR (CKD) >90 (>60 ml/min/1.73 sqM); Anion Gap 8 mmol/L; Blood Urea Nitrogen 22 mg/dL (9-20); Calcium 9.4 mg/dL (8.4-10.2); Carbon Dioxide 28 mmol/L (22-30); Chloride 103 mmol/L (98-107); Glucose 122 mg/dL (74-99); Potassium 4.7 mmol/L (3.5-5.1); Sodium 139 mmol/L (137-145)
--- NOTE | 2019-09-07 08:16 | CONS ---
CONSULTATION Mr. Tilley remains in atrial fib but the rate is much better controlled. I tried to convert him to sinus rhythm with 450 mg of Rythmol, but he did not convert. He remains in atrial fib. Rate is in the 70s to 80s, well controlled. He is already anticoagulated with Eliquis. Plan is to send him home on propafenone 150 mg t.i.d. and metoprolol 25 mg b.i.d. with Eliquis 5 mg b.i.d. He will see Dr. Degroot in one week and in 3-4 weeks, he will have electrical cardioversion. Vitals are stable. No JVD. S1, S2 heard normally, irregular rhythm noted. Lungs are clear. Abdomen and lower extremity exam unchanged. 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 The patient can be discharged today. MMODL / IJN: [id number] /
[2019-09-07] MEDS ORDERED: METOPROLOL TARTRATE 25 MG TAB PO SCH (09:00)
[2019-09-07] MEDS: PROPAFENONE 150 MG TAB PO SCH (09:05)
[2019-09-07] MEDS: APIXABAN 5 MG TAB PO SCH (09:05)
[2019-09-07 12:01] VITALS: BP 142/88; PULSE 88; RESP 20; TEMP 97.8
--- NOTE | 2019-09-08 11:00 | DS ---
DISCHARGE SUMMARY DATE OF SERVICE: 09/07/2019. FINAL DIAGNOSES: 1. New onset atrial fibrillation, rapid ventricular rate, controlled with chronic atrial fibrillation. 2. Nonsustained ventricular tachycardia. 3. Hypertension. 4. Hyperlipidemia. 5. History of EtOH abuse. 6. History of nicotine dependence. DISCHARGE DISPOSITION: The patient is being discharged in stable condition with guarded prognosis. HISTORY OF PRESENT ILLNESS: This 62-year-old gentleman with a past medical history of multiple medical problems being followed by Dr. Castillo in the outpatient setting, was admitted with atrial fibrillation with fast ventricular rate. Rate was controlled with multiple medications. Cardiology saw the patient. Patient also had episodes of nonsustained tachycardia. Rythmol was initiated. Patient improved significantly. On exam, vitals are stable. Cardiovascular is normal. Abdomen soft. Nervous system: No focal deficits. DISCHARGE ADVICE AND MEDICATIONS: 1. Discharge diet is cardiac diet. 2. Activity limited until followup.. 3. Follow up with Dr. Castillo in 1-2 days. 4. Follow up with Dr. Degroot as recommended. DISCHARGE MEDICATIONS: 1. Eliquis 5 mg p.o. b.i.d. 2. Lopressor 25 mg p.o. b.i.d. 3. Rythmol 150 mg p.o. q.8 per Cardiology. 4. Tylenol p.r.n. Once again, the patient is being discharged in stable condition with guarded prognosis. MMMICHAELL / SHASTAN: [id number] /
== END 2019-09-07 14:20 | disposition home or self-care (01) | DRG 309 ==
LOC: EC 10:25 → 3SCARD 12:37
PROVIDERS: ADMIT Family Medicine; ATTEND Family Medicine
DX: I48.19 Other persistent atrial fibrillation (principal); Z68.42 Body mass index [BMI] 45.0-49.9, adult; E66.01 Morbid (severe) obesity due to excess calories; E78.00 Pure hypercholesterolemia, unspecified; E78.5 Hyperlipidemia, unspecified; F17.200 Nicotine dependence, unspecified, uncomplicated; I10 Essential (primary) hypertension; I47.2 Ventricular tachycardia; Z79.01 Long term (current) use of anticoagulants; Z79.899 Other long term (current) drug therapy; Z80.1 Family history of malignant neoplasm of trachea, bronchus and lung; Z80.3 Family history of malignant neoplasm of breast; Z82.49 Family history of ischemic heart disease and other diseases of the circulatory system; Z89.029 Acquired absence of unspecified finger(s)
CPT/HCPCS: 36415; 71046; 80048; 80053; 83735; 83880; 84443; 84484; 85025; 85610; 85730; 93005; 93306; 96365; 96366; 96368; 96375; 96376; 99291

== ENCOUNTER → 2019-10-09 | Day surgery (SDC) | payer OTHER ==
[2019-10-08 09:03] VITALS: BMI 43.0
[~2019-10-09] MED LIST: APIXABAN 5 MG TAB PO SCH; BENZOCAINE SPRAY 1 CAN MUCOUS MEM ONE; LACTATED RINGERS 1,000 ML IV SCH; METOPROLOL TARTRATE 12.5 MG TAB PO SCH; PROPAFENONE 150 MG TAB PO SCH; PROPOFOL 10 MG/ML 20 ML VIAL IV ONE; SODIUM CHLORIDE 0.9% 1,000 ML IV SCH
[2019-10-09 09:30] VITALS: TEMP 98.1
[2019-10-09 09:51] LABS: African American GFR (CKD) >90 (>60 ml/min/1.73 sqM); Anion Gap 9 mmol/L; Blood Urea Nitrogen 22 mg/dL (9-20); Calcium 9.7 mg/dL (8.4-10.2); Carbon Dioxide 23 mmol/L (22-30); Chloride 108 mmol/L (98-107); Glucose 140 mg/dL (74-99); Non-African American GFR(CKD) >90 (>60 ml/min/1.73 sqM); Sodium 140 mmol/L (137-145)
[2019-10-09 09:57] LABS: Potassium 4.6 mmol/L (3.5-5.1)
--- NOTE | 2019-10-09 11:19 | ECHOT ---
TRANSESOPHAGEAL ECHOCARDIOGRAM INDICATION: Persistent atrial fibrillation. PROCEDURE NOTE: After obtaining informed consent, transesophageal echocardiogram was performed in left lateral position using an Omni plane probe. Local and IV sedation were obtained by the intensive care unit registered nurse. FINDINGS: 1. There is no intracardiac thrombus within the left atrial appendage, left atrium, left ventricle, right atrium, or right ventricle. 2. Mitral valve appears anatomically normal. There is mild to moderate central mitral regurgitation noted. 3. Tricuspid valve appears normal. There is mild tricuspid regurgitation noted. 4. Aortic valve is a 3-leaflet valve. There is no evidence of aortic stenosis or regurgitation. 5. Interatrial septum, there is no evidence of [id number] shunt by agitated saline contrast study or [id number] shunt by color-flow Doppler. Aorta is free of significant atherosclerosis. CONCLUSION: 1. No intracardiac thrombus. 2. Normal left ventricular function. 3. No evidence of shunting across the interatrial septum. 4. Moderate mitral regurgitation. PLAN: Patient will undergo cardioversion. MMODL / IJN: [id number] /
[2019-10-09 11:38] VITALS: BP 126/65; PULSE 64; RESP 16
--- NOTE | 2019-10-09 11:43 | CE ---
CARDIAC ELECTROPHYSIOLOGY REPORT INDICATION: Persistent atrial fibrillation. PROCEDURE NOTE: After obtaining informed consent, the patient underwent electrical cardioversion with 300 joules of synchronized DC current. The patient converted to sinus rhythm following a single shock. He is adequately anticoagulated with Eliquis 5 b.i.d., and he is on Rythmol 150 q.8. Patient will continue these 2 medications. Patient tolerated the procedure well without any obvious immediate complications and a EFRAÍN was performed prior to rule out intracardiac thrombus. MMODL / IJN: [id number] /
--- NOTE | 2019-10-09 11:43 | LTR ---
DATE OF SERVICE: 10/09/2019 RE: Jarek Yaakov Dear [place]; I performed EFRAÍN, cardioversion on Yaakov Mejia. The detailed procedure note is enclosed for your records. Patient as you remember was admitted to hospital recently with persistent atrial fibrillation and in spite of being treated with Rythmol, he remained in atrial fibrillation. Hence, we performed a EFRAÍN and cardioverted him successfully. I will continue him on Rythmol and Eliquis for now. Thank you for allowing us to participate in the care of this pleasant gentleman. Sincerely, MD RAMA Schaffer / STEPHIE: [id number] /
== END ==
LOC: CATHCVL 09:03
PROVIDERS: ATTEND Internal Medicine Cardiovascular Disease
DX: I48.19 Other persistent atrial fibrillation (principal); I08.1 Rheumatic disorders of both mitral and tricuspid valves; I10 Essential (primary) hypertension; Z79.01 Long term (current) use of anticoagulants; Z79.899 Other long term (current) drug therapy
CPT/HCPCS: 93312; 93320; 93005; 93325; 92960; 80048; J2704

== ENCOUNTER 2021-07-08 11:37 | Inpatient (IN) | payer MEDICARE, OTHER ==
[2021-07-08] MEDS ORDERED: DILTIAZEM DRIP BOLUS FROM BAG 1 MG SOLN IV ONE (11:59)
--- NOTE | 2021-07-08 12:02 | ED ---
General Adult HPI - General Chief complaint: Arrhythmia/Palpitations Stated complaint: A Fib,SOB Time Seen by Provider: 07/08/21 11:40 Source: patient, RN notes reviewed, old records reviewed Mode of arrival: wheelchair Limitations: physical limitation - History of Present Illness Initial comments: This is a 66-year-old male who presents emergency Department with a past medical history significant for atrial fibrillation. Patient states for 3 months she's not been feeling well but he refused to going to the emergency department. Patient went to see his digital strategy manager is a digital strategy manager felt he was in A. fib with rapid ventricular response and possibly congestive heart failure so we sent to the emergency department. Patient denies any fever chills or cough. Patient denies any chest pain or pressure. Patient states he has been extremely short of breath lately. Patient states his been a little more edema to his legs normal. Patient denies any abdominal pain patient denies nausea vomiting diarrhea. Patient denies any headache patient denies numbness weakness. Patient denies lightheadedness or dizziness. - Related Data Previous Rx's Medication Instructions Recorded Acetaminophen Tab [Tylenol] 650 mg PO Q6HR PRN tab 09/07/19 Apixaban [Eliquis] 5 mg PO BID #60 tab 09/07/19 Propafenone [Rythmol] 150 mg PO Q8HR #90 tab 09/07/19 Metoprolol Tartrate [Lopressor] 12.5 mg PO BID tab 10/09/19 Allergies Allergy/AdvReac Type Severity Reaction Status Date / Time No Known Allergies Allergy Verified 07/08/21 11:47 Review of Systems ROS Statement: Those systems with pertinent positive or pertinent negative responses have been documented in the HPI. ROS Other: All systems not noted in ROS Statement are negative. Past Medical History Past Medical History: Atrial Fibrillation, Hyperlipidemia, Hypertension Additional Past Medical History / Comment(s): generalized pain, DDD, pleural effusion History of Any Multi-Drug Resistant Organisms: None Reported Past Surgical History: Orthopedic Surgery Additional Past Surgical History / Comment(s): L hand index finger amputation, R arm fracture with plate. Past Anesthesia/Blood Transfusion Reactions: No Reported Reaction Past Psychological History: No Psychological Hx Reported Past Alcohol Use History: None Reported Past Drug Use History: None Reported - Past Family History Father Family Medical History: Cancer Additional Family Medical History / Comment(s): Father of lung cancer at age 55 or 56yrs. 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 Mother Family Medical History: AFIB, Cancer Additional Family Medical History / Comment(s): Mother of recurrent breast cancer at the age of 83 yrs. General Exam - General Exam Comments Initial Comments: GENERAL: Patient is well-developed and well-nourished. Patient is nontoxic and well- hydrated and is in mild distress. ENT: Neck is soft and supple. No significant lymphadenopathy is noted. Oropharynx is clear. Moist mucous membranes. Neck has full range of motion without eliciting any pain. EYES: The sclera were anicteric and conjunctiva were pink and moist. Extraocular movements were intact and pupils were equal round and reactive to light. Eyelids were unremarkable. PULMONARY: Unlabored respirations. Good breath sounds bilaterally. No audible rales rhonchi or wheezing was noted. CARDIOVASCULAR: Patient is tachycardic at about 120 beats a minute and the rate is irregular. ABDOMEN: Soft and nontender with normal bowel sounds. No palpable organomegaly was noted. There is no palpable pulsatile mass. SKIN: Skin is clear with no lesions or rashes and otherwise unremarkable. NEUROLOGIC: Patient is alert and oriented x3. Cranial nerves II through XII are grossly intact. Motor and sensory are also intact. Normal speech, volume and content. Symmetrical smile. MUSCULOSKELETAL: Normal extremities with adequate strength and full range of motion. 1+ edema bilaterally LYMPHATICS: No significant lymphadenopathy is noted PSYCHIATRIC: Normal psychiatric evaluation. Limitations: physical limitation Course Vital Signs 07/08/21 07/08/21 11:44 12:21 Temperature 98.2 F Pulse Rate 112 H 108 H Respiratory 20 18 Rate Blood Pressure 188/107 168/121 O2 Sat by Pulse 95 109 H Oximetry Medical Decision Making - Medical Decision Making EKG shows atrial fibrillation with rapid ventricular response at 160 bpm QRS is 104 QT interval 346 QTC is 480. Patient's EKG shows no ST segment elevation or depression. Chest x-ray shows no acute abnormality. I started the patient on Cardizem and one pack and reevaluate him after one on his heart rate was noted upon 100 beats a minute still irregular. I spoke with Dr. Degroot about this patient and he wanted the patient admitted. I spoke with Dr. Castillo but the patient he agreed to admit the patient admitted the patient wrote admitting orders. - Lab Data Result diagrams: 07/08/21 12:08 07/08/21 12:08 Lab Results 07/08/21 07/08/21 07/08/21 Range/Units 12:08 12:08 12:08 WBC 7.6 (3.8-10.6) k/uL RBC 4.03 L (4.30-5.90) m/uL Hgb 15.0 (13.0-17.5) gm/dL Hct 44.7 (39.0-53.0) % MCV 111.0 H (80.0-100.0) fL MCH 37.1 H (25.0-35.0) pg MCHC 33.4 (31.0-37.0) g/dL RDW 16.1 H (11.5-15.5) % Plt Count 283 (150-450) k/uL MPV 7.3 Neutrophils % 76 % Lymphocytes % 12 % Monocytes % 7 % Eosinophils % 1 % Basophils % 1 % Neutrophils # 5.8 (1.3-7.7) k/uL Lymphocytes # 0.9 L (1.0-4.8) k/uL Monocytes # 0.5 (0-1.0) k/uL Eosinophils # 0.1 (0-0.7) k/uL Basophils # 0.0 (0-0.2) k/uL Anisocytosis Slight Macrocytosis Marked A PT 11.7 (9.0-12.0) sec INR 1.1 (<1.2) APTT 21.2 L (22.0-30.0) sec Sodium 138 (137-145) mmol/L Potassium 4.3 (3.5-5.1) mmol/L Chloride 104 (98-107) mmol/L Carbon Dioxide 23 (22-30) mmol/L Anion Gap 11 mmol/L BUN 14 (9-20) mg/dL Creatinine 0.71 (0.66-1.25) mg/dL Est GFR (CKD-EPI)AfAm >90 (>60 ml/min/1.73 sqM) Est GFR (CKD-EPI)NonAf >90 (>60 ml/min/1.73 sqM) Glucose 160 H (74-99) mg/dL Calcium 9.6 (8.4-10.2) mg/dL Magnesium 1.6 (1.6-2.3) mg/dL Total Bilirubin 1.2 (0.2-1.3) mg/dL AST 49 (17-59) U/L ALT 37 (4-49) U/L Alkaline Phosphatase 106 (38-126) U/L Troponin I (0.000-0.034) ng/mL NT-Pro-B Natriuret Pep pg/mL Total Protein 7.6 (6.3-8.2) g/dL Albumin 3.9 (3.5-5.0) g/dL TSH 1.720 (0.465-4.680) mIU/L 07/08/21 07/08/21 Range/Units 12:08 12:08 WBC (3.8-10.6) k/uL RBC (4.30-5.90) m/uL Hgb (13.0-17.5) gm/dL Hct (39.0-53.0) % MCV (80.0-100.0) fL MCH (25.0-35.0) pg MCHC (31.0-37.0) g/dL RDW (11.5-15.5) % Plt Count (150-450) k/uL MPV Neutrophils % % Lymphocytes % % Monocytes % % Eosinophils % % Basophils % % Neutrophils # (1.3-7.7) k/uL Lymphocytes # (1.0-4.8) k/uL Monocytes # (0-1.0) k/uL Eosinophils # (0-0.7) k/uL Basophils # (0-0.2) k/uL Anisocytosis Macrocytosis PT (9.0-12.0) sec INR (<1.2) APTT (22.0-30.0) sec Sodium (137-145) mmol/L Potassium (3.5-5.1) mmol/L Chloride (98-107) mmol/L Carbon Dioxide (22-30) mmol/L Anion Gap mmol/L BUN (9-20) mg/dL Creatinine (0.66-1.25) mg/dL Est GFR (CKD-EPI)AfAm (>60 ml/min/1.73 sqM) Est GFR (CKD-EPI)NonAf (>60 ml/min/1.73 sqM) Glucose (74-99) mg/dL Calcium (8.4-10.2) mg/dL Magnesium (1.6-2.3) mg/dL Total Bilirubin (0.2-1.3) mg/dL AST (17-59) U/L ALT (4-49) U/L Alkaline Phosphatase (38-126) U/L Troponin I <0.012 (0.000-0.034) ng/mL NT-Pro-B Natriuret Pep 863 pg/mL Total Protein (6.3-8.2) g/dL Albumin (3.5-5.0) g/dL TSH (0.465-4.680) mIU/L Critical Care Time Critical Care Time: Yes Total Critical Care Time: 35 Disposition Clinical Impression: Atrial fibrillation with rapid ventricular response Disposition: ADMITTED IP TO THIS HOSP Referrals: [place] Castillo DO [Primary Care Provider] - 1-2 days Time of Disposition: 13:11
[2021-07-08] MEDS: DILTIAZEM 125 MG in SODIUM CHLORIDE 0.9% 100 ML IV SCH (12:19)
[2021-07-08 12:24] LABS: Anisocytosis Slight; Basophils % (A) 1 %; Eosinophils # (A) 0.1 k/uL (0-0.7); Eosinophils % (A) 1 %; HCT 44.7 % (39.0-53.0); Lymphocytes # (A) 0.9 k/uL (1.0-4.8); Lymphocytes % (A) 12 %; MCH 37.1 pg (25.0-35.0); MCHC 33.4 g/dL (31.0-37.0); Macrocytosis Marked; Mean Platelet Volume 7.3; Monocytes # (A) 0.5 k/uL (0-1.0); Monocytes % (A) 7 %; Neutrophils # (A) 5.8 k/uL (1.3-7.7); Neutrophils % (A) 76 %; Platelet Count 283 k/uL (150-450); RBC 4.03 m/uL (4.30-5.90); RDW 16.1 % (11.5-15.5); WBC 7.6 k/uL (3.8-10.6)
[2021-07-08 12:34] LABS: ALT 37 U/L (4-49); AST 49 U/L (17-59); African American GFR (CKD) >90 (>60 ml/min/1.73 sqM); Albumin 3.9 g/dL (3.5-5.0); Alkaline Phosphatase 106 U/L (38-126); Anion Gap 11 mmol/L; Blood Urea Nitrogen 14 mg/dL (9-20); Calcium 9.6 mg/dL (8.4-10.2); Carbon Dioxide 23 mmol/L (22-30); Chloride 104 mmol/L (98-107); Glucose 160 mg/dL (74-99); Magnesium 1.6 mg/dL (1.6-2.3); Non-African American GFR(CKD) >90 (>60 ml/min/1.73 sqM); Sodium 138 mmol/L (137-145); Total Bilirubin 1.2 mg/dL (0.2-1.3); Total Protein 7.6 g/dL (6.3-8.2)
[2021-07-08 12:41] LABS: Potassium 4.3 mmol/L (3.5-5.1)
[2021-07-08 12:43] LABS: INR 1.1 (<1.2); Partial Thromboplastin Time 21.2 sec (22.0-30.0); Prothrombin Time 11.7 sec (9.0-12.0)
--- NOTE | 2021-07-08 13:02 | XR ---
EXAMINATION TYPE: XR chest 2V DATE OF EXAM: 07/08/2021 COMPARISON: 09/03/2019 HISTORY: Shortness of breath TECHNIQUE: Frontal and lateral views of the chest are obtained. FINDINGS: Scattered senescent parenchymal changes noted. Hyperinflation compatible with COPD. No evidence for infiltrate. No evidence for atelectasis. Heart size is stable. Mediastinal structures are stable and grossly unremarkable. No evidence for hilar prominence. Degenerative changes dorsal spine. IMPRESSION: 1. No evidence for acute pulmonary disease.
[2021-07-08] MEDS ORDERED: NITROGLYCERIN SL TABS 0.4 MG TAB SUBLINGUAL PRN (13:23)
[2021-07-08] MEDS ORDERED: hydrALAZINE HCL 20 MG/ML 1 ML VIAL IVP STA (14:34)
--- NOTE | 2021-07-09 08:23 | P.CRDCN ---
History of Present Illness Consult date: 07/09/21 Chief complaint: Shortness of breath and lower extremities edema History of present illness: This is a very pleasant 66-year-old gentleman with a past medical history significant for obesity as well as paroxysmal atrial fibrillation who follows with Dr. Rogel regularly. We consulted to see the patient for further evaluation of atrial fibrillation with rapid ventricular response. The patient was diagnosed with atrial fibrillation in 2019 and at that point he underwent EFRAÍN and cardioversion. Currently he has been maintaining normal sinus mechanism to about 2 months ago. For the last 2 months he has been struggling with atrial fibrillation which has been managed medically. But for the last few days he has been experiencing increasing in the shortness of breath with exertion to the level where he cannot achieve his daily activities. He developed also lower extremities edema. He gained weight but is not quite sure how much he gained. He denies any chest pain or chest discomfort and denies any dizziness or lightheadedness or any feeling of heart racing or fluttering at this point or presyncope or syncope. Currently he is on Cardizem IV at 5 mg. He is in atrial fibrillation was controlled heart rate. He does have obesity and also does have hypertension. No coronary artery disease. He stated that he snored during the night but he never been tested for sleep apnea. Clinically seems to be in heart failure with bilateral lower exam it is pitting edema and diminished breathing sounds bilaterally. The NT proBNP came in to be about 800 but he is obese. Past Medical History Past Medical History: Atrial Fibrillation, Hyperlipidemia, Hypertension Additional Past Medical History / Comment(s): generalized pain, DDD, pleural effusion History of Any Multi-Drug Resistant Organisms: None Reported Past Surgical History: Orthopedic Surgery Additional Past Surgical History / Comment(s): L hand index finger amputation, R arm fracture with plate. CARDIOVERSION 2019 Past Anesthesia/Blood Transfusion Reactions: No Reported Reaction Past Psychological History: No Psychological Hx Reported Additional Psychological History / Comment(s): Pt resides with his spouse. He workED for [employer]. Smoking Status: Never smoker Past Alcohol Use History: None Reported Additional Past Alcohol Use History / Comment(s): Pt states he chewed for one year none now Past Drug Use History: None Reported - Past Family History Father Family Medical History: Cancer Additional Family Medical History / Comment(s): Father of lung cancer at age 55 or 56yrs. He was a smoker and worked in a [employer] [place]. Mother Family Medical History: AFIB, Cancer Additional Family Medical History / Comment(s): Mother of recurrent breast cancer at the age of 83 yrs. Medications and Allergies Home Medications Medication Instructions Recorded Confirmed Type Aspirin EC [Ecotrin Low Dose] 81 mg PO DAILY 07/08/21 07/08/21 History Metoprolol Tartrate [Lopressor] 50 mg PO BID 07/08/21 07/08/21 History Propafenone [Rythmol] 150 mg PO BID 07/08/21 07/08/21 History Allergies Allergy/AdvReac Type Severity Reaction Status Date / Time No Known Allergies Allergy Verified 07/08/21 13:42 Physical Exam Vitals: Vital Signs Temp Pulse Pulse Resp BP BP Pulse Ox 07/09/21 08:12 97 07/09/21 04:00 98.3 F 99 18 160/81 98 07/09/21 02:00 95 18 07/08/21 23:36 98.0 F 95 18 166/94 96 07/08/21 20:14 98.1 F 83 18 174/102 96 07/08/21 20:00 98.1 F 83 18 174/102 96 07/08/21 19:11 97.5 F L 94 18 181/94 96 07/08/21 18:32 98.7 F 92 17 160/102 97 07/08/21 17:05 92 18 174/84 99 07/08/21 14:00 103 H 17 155/113 98 07/08/21 13:30 91 16 175/124 98 07/08/21 13:00 97 07/08/21 12:30 92 16 168/121 95 07/08/21 12:21 108 H 18 168/121 109 H 07/08/21 12:00 114 H 17 179/137 96 07/08/21 11:58 97 07/08/21 11:44 98.2 F 112 H 20 188/107 95 Intake and Output 07/08/21 07/09/21 07/09/21 22:59 06:59 14:59 Output Total 200 700 Balance -200 -700 Output: Urine 200 700 Other: Voiding Method Urinal Urinal # Voids 1 2 Weight 167.829 kg 160 kg - Constitutional General appearance: no acute distress - Respiratory Respiratory: bilateral: CTA - Cardiovascular Rhythm: regular Heart sounds: normal: S1, S2 Results 07/08/21 12:08 07/08/21 12:08 Cardiac Enzymes 07/08/21 07/08/21 07/08/21 Range/Units 12:08 12:08 18:25 AST 49 (17-59) U/L Troponin I <0.012 <0.012 (0.000-0.034) ng/mL Coagulation 07/08/21 Range/Units 12:08 PT 11.7 (9.0-12.0) sec APTT 21.2 L (22.0-30.0) sec CBC 07/08/21 Range/Units 12:08 WBC 7.6 (3.8-10.6) k/uL RBC 4.03 L (4.30-5.90) m/uL Hgb 15.0 (13.0-17.5) gm/dL Hct 44.7 (39.0-53.0) % Plt Count 283 (150-450) k/uL Comprehensive Metabolic Panel 07/08/21 Range/Units 12:08 Sodium 138 (137-145) mmol/L Potassium 4.3 (3.5-5.1) mmol/L Chloride 104 (98-107) mmol/L Carbon Dioxide 23 (22-30) mmol/L BUN 14 (9-20) mg/dL Creatinine 0.71 (0.66-1.25) mg/dL Glucose 160 H (74-99) mg/dL Calcium 9.6 (8.4-10.2) mg/dL AST 49 (17-59) U/L ALT 37 (4-49) U/L Alkaline Phosphatase 106 (38-126) U/L Total Protein 7.6 (6.3-8.2) g/dL Albumin 3.9 (3.5-5.0) g/dL Current Medications Generic Name Dose Route Start Last Admin Trade Name Freq PRN Reason Stop Dose Admin Aspirin 81 mg 07/09/21 09:00 Aspirin 81 Mg PO DAILY CHANI Furosemide 40 mg 07/09/21 09:00 Furosemide 10 Mg/Ml 4 Ml Vial IV Q12HR CHANI Heparin Sodium (Porcine) 0 unit 07/09/21 08:07 Heparin Sodium 1,000 Un/Ml (10ml Vl) IV PER PROTOCOL PRN Low PTT Protocol Diltiazem HCl 125 mg/ Sodium 125 mls @ 5 mls/hr 07/08/21 12:30 07/08/21 12:19 Chloride IV 5 mg/hr .Q24H CHANI 5 mls/hr Administration 5 MG/HR Heparin Sodium/Sodium Chloride 250 mls @ 10 mls/hr 07/09/21 08:15 25,000 unit/ Sodium Chloride IV .Q24H CHANI Protocol 6.25 UNITS/KG/HR Metoprolol Tartrate 50 mg 07/09/21 09:00 Metoprolol Tartrate 50 Mg Tab PO BID CHANI Nitroglycerin 0.4 mg 07/08/21 13:23 Nitroglycerin Sl Tabs 0.4 Mg Tab SUBLINGUAL Q5M PRN Chest Pain Propafenone HCl 150 mg 07/09/21 09:00 Propafenone 150 Mg Tab PO BID [facility] Intake and Output 07/08/21 07/09/21 07/09/21 22:59 06:59 14:59 Output Total 200 700 Balance -200 -700 Output: Urine 200 700 Other: Voiding Method Urinal Urinal # Voids 1 2 Weight 167.829 kg 160 kg 07/08/21 12:08 07/08/21 12:08 Assessment and Plan Assessment: Assessment #1 persistent atrial fibrillation #2 hypertension #3 obesity #4 heart failure with unknown a chill G Plan #1 continue the current dose of Cardizem IV #2 restart the patient on metoprolol tartrate orally which is his home dose #3 start the patient on anticoagulation with heparin #4 start the patient on Lasix IV #5 obtain an echo We will continue following up with the patient
[2021-07-09] MEDS ORDERED: ASPIRIN 325 MG TAB PO SCH (09:00)
[2021-07-09] MEDS: METOPROLOL TARTRATE 50 MG TAB PO SCH ×2 (09:14→20:43)
[2021-07-09] MEDS: PROPAFENONE 150 MG TAB PO SCH ×2 (09:14→20:42)
[2021-07-09] MEDS: ASPIRIN 81 MG PO SCH (09:15)
[2021-07-09] MEDS: FUROSEMIDE 10 MG/ML 4 ML VIAL IV SCH ×2 (09:16→20:42)
[2021-07-09 09:27] LABS: Anisocytosis Slight; Basophils % (A) 1 %; Eosinophils # (A) 0.1 k/uL (0-0.7); Eosinophils % (A) 3 %; HGB 13.6 gm/dL (13.0-17.5); Lymphocytes # (A) 0.8 k/uL (1.0-4.8); Lymphocytes % (A) 14 %; MCH 37.7 pg (25.0-35.0); MCV 110.8 fL (80.0-100.0); Macrocytosis Marked; Mean Platelet Volume 7.1; Monocytes # (A) 0.4 k/uL (0-1.0); Monocytes % (A) 7 %; Neutrophils # (A) 3.9 k/uL (1.3-7.7); Neutrophils % (A) 72 %; Platelet Count 235 k/uL (150-450); RBC 3.62 m/uL (4.30-5.90); RDW 16.3 % (11.5-15.5); WBC 5.4 k/uL (3.8-10.6)
[2021-07-09] MEDS: HEPARIN SOD,PORK IN 0.45% NACL 25,000 UNIT in 0.45% NACL 1 250ML.BAG IV SCH (09:30)
[2021-07-09 09:44] LABS: INR 1.1 (<1.2); Partial Thromboplastin Time 22.1 sec (22.0-30.0); Prothrombin Time 11.6 sec (9.0-12.0)
[2021-07-09] MEDS: HEPARIN SODIUM 1,000 UN/ML (10ML VL) IV PRN ×2 (09:45→17:34)
[2021-07-09 12:01] LABS: Chol/HDL Ratio 4.34
--- NOTE | 2021-07-09 15:50 | P.HPIM ---
History of Present Illness H&P Date: 07/09/21 Chief Complaint: Shortness of breath Patient is a 66-year-old male with a known history of paroxysmal atrial fibrillation, hypertension, hyperlipidemia, generalized pain history of EFRAÍN/cardioversion presents ER with the complaints of worsening shortness of breath and leg swelling. Patient does have history of atrial fibrillation with rapid regular rate and for the past 2 months he has been having on and off rapid ventricular rates. Denied any complaints of chest pain. No complains of headache or dizziness or lightheadedness. Patient states that he has been gaining weight and worsening leg swelling.. In the ER patient was found to be in atrial fibrillation with rapid regular rate. Was started on Cardizem drip and heparin drip. Denied any cough or sputum production. No fever no chills. Chest x-ray showed no evidence for acute pulmonary disease. Laboratory data showed WBC 7.6, hemoglobin 15.0 and platelets 283 Sodium 138 potassium 4.3 chloride 104 BUN 14 and creatinine 0.71 and magnesium 1.6, proBNP 863 TSH 1.7-0 Review of Systems Constitutional: Patient denies any fever or chills . No generalized weakness or weight loss. Abdomen: Patient denied nausea vomiting and diarrhea and abdominal pain. Cardiovascular: Patient does have shortness of breath and worsening leg swelling. No chest pain. No palpitations.. Respiratory: patient denied any cough is from production. No shortness of breath Neurologic: Patient denied any numbness or tingling headache. Musculoskeletal: Patient denies any complaints of joint swelling or deformity. Skin: Negative Psychiatric: Negative Endocrine: No heat or cold intolerance. No recent weight gain. Genitourinary: No dysuria or hematuria. All other 14 point ROS negative except the above Past Medical History Past Medical History: Atrial Fibrillation, Hyperlipidemia, Hypertension Additional Past Medical History / Comment(s): generalized pain, DDD, pleural effusion History of Any Multi-Drug Resistant Organisms: None Reported Past Surgical History: Orthopedic Surgery Additional Past Surgical History / Comment(s): L hand index finger amputation, R arm fracture with plate. CARDIOVERSION 2019 Past Anesthesia/Blood Transfusion Reactions: No Reported Reaction Past Psychological History: No Psychological Hx Reported Additional Psychological History / Comment(s): Pt resides with his spouse. He workED for [employer]. Smoking Status: Never smoker Past Alcohol Use History: None Reported Additional Past Alcohol Use History / Comment(s): Pt states he chewed for one year none now Past Drug Use History: None Reported - Past Family History Father Family Medical History: Cancer Additional Family Medical History / Comment(s): Father of lung cancer at age 55 or 56yrs. 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 Mother Family Medical History: AFIB, Cancer Additional Family Medical History / Comment(s): Mother of recurrent breast cancer at the age of 83 yrs. Medications and Allergies Home Medications Medication Instructions Recorded Confirmed Type Aspirin EC [Ecotrin Low Dose] 81 mg PO DAILY 07/08/21 07/08/21 History Metoprolol Tartrate [Lopressor] 50 mg PO BID 07/08/21 07/08/21 History Propafenone [Rythmol] 150 mg PO BID 07/08/21 07/08/21 History Allergies Allergy/AdvReac Type Severity Reaction Status Date / Time No Known Allergies Allergy Verified 07/08/21 13:42 Physical Exam Vitals: Vital Signs Temp Pulse Pulse Resp BP BP Pulse Ox 07/09/21 08:12 97 07/09/21 08:00 98.3 F 104 H 20 131/91 98 07/09/21 04:00 98.3 F 99 18 160/81 98 07/09/21 02:00 95 18 07/08/21 23:36 98.0 F 95 18 166/94 96 07/08/21 20:14 98.1 F 83 18 174/102 96 07/08/21 20:00 98.1 F 83 18 174/102 96 07/08/21 19:11 97.5 F L 94 18 181/94 96 07/08/21 18:32 98.7 F 92 17 160/102 97 07/08/21 17:05 92 18 174/84 99 07/08/21 14:00 103 H 17 155/113 98 07/08/21 13:30 91 16 175/124 98 07/08/21 13:00 97 07/08/21 12:30 92 16 168/121 95 07/08/21 12:21 108 H 18 168/121 109 H Intake and Output 07/08/21 07/09/21 07/09/21 22:59 06:59 14:59 Output Total 200 700 800 Balance -200 -700 -800 Output: Urine 200 700 800 Other: Voiding Method Urinal Urinal # Voids 1 2 Weight 167.829 kg 160 kg PHYSICAL EXAMINATION: Patient is lying in the bed comfortably, no acute distress, awake alert and oriented.. HEENT: Normocephalic. Neck is supple. Pupils reactive. Nostrils clear. Oral cavity is moist. Neck reveals no JVD, carotid bruits, or thyromegaly. CHEST EXAMINATION: Trachea is central. Symmetrical expansion. Lung mcdonald clear to auscultation and percussion. CARDIAC: Normal S1, S2 with no gallops. No murmurs ABDOMEN: Soft. Bowel sounds normal. No organomegaly. No abdominal bruits. Extremities: Bilateral 2+ leg edema. No clubbing or cyanosis Neurologically awake, alert, oriented x3 with well-coordinated movements. No focal deficits noted Skin: No rash or skin lesions. Psychiatric: Coperative. Nonsuicidal Musculoskeletal: No joint swelling or deformity. Normal range of motion. Results CBC & Chem 7: 07/09/21 08:23 07/08/21 12:08 Labs: Abnormal Lab Results - Last 24 Hours (Table) 07/08/21 07/08/21 07/08/21 Range/Units 12:08 12:08 12:08 RBC 4.03 L (4.30-5.90) m/uL MCV 111.0 H (80.0-100.0) fL MCH 37.1 H (25.0-35.0) pg RDW 16.1 H (11.5-15.5) % Lymphocytes # 0.9 L (1.0-4.8) k/uL Macrocytosis Marked A APTT 21.2 L (22.0-30.0) sec Glucose 160 H (74-99) mg/dL HDL Cholesterol (40.0-60.0) mg/dL 07/09/21 07/09/21 Range/Units 08:23 08:23 RBC 3.62 L (4.30-5.90) m/uL MCV 110.8 H (80.0-100.0) fL MCH 37.7 H (25.0-35.0) pg RDW 16.3 H (11.5-15.5) % Lymphocytes # 0.8 L (1.0-4.8) k/uL Macrocytosis Marked A APTT (22.0-30.0) sec Glucose (74-99) mg/dL HDL Cholesterol 38.0 L (40.0-60.0) mg/dL Thrombosis Risk Factor Assmnt - DVT/VTE Prophylaxis DVT/VTE Prophylaxis: Pharmacologic Prophylaxis ordered - Choose All That Apply Any of the Below Risk Factors Present?: Yes Each Risk Factor Represents 2 Points: Age 61-74 years Thrombosis Risk Factor Assessment Total Risk Factor Score: 2 Thrombosis Risk Factor Assessment Level: Low Risk Assessment and Plan Assessment: Worsening shortness of breath and leg swelling due to acute CHF EF unknown. Likely Exacerbated by A. fib with RVR. Paroxysmal Atrial fibrillation with rapid ventricular rate. With history of EFRAÍN/cardioversion. Hypertension Morbid obesity BMI 49.2 DVT prophylaxis patient is already on heparin drip Plan: Patient was started on Lasix 40 mg IV twice a day and monitor renal function. Continue with telemetry monitoring. Continue with Cardizem drip and restarted metoprolol as per his home dose. Current with anticoagulation with heparin. 2-D echo cardiac was ordered. Cardiology is on board. Continue to follow closely. Time with Patient: Greater than 30
[2021-07-09] MEDS: ACETAMINOPHEN TAB 325 MG TAB PO PRN (16:58)
[2021-07-09] MEDS: MAGNESIUM SULFATE-D5W PMX 1 GM in DEXTROSE/WATER 1 100ML.BAG IVPB SCH ×2 (17:03→20:41)
[2021-07-09] MEDS: DILTIAZEM 125 MG in SODIUM CHLORIDE 0.9% 100 ML IV SCH (17:11)
[2021-07-10] MEDS: HEPARIN SOD,PORK IN 0.45% NACL 25,000 UNIT in 0.45% NACL 1 250ML.BAG IV SCH ×2 (03:55→17:58)
--- NOTE | 2021-07-10 07:05 | P.PN ---
Subjective Progress Note Date: 07/10/21 Principal diagnosis: Persistent atrial fibrillation The patient was seen this morning. He continues to be in atrial fibrillation with slightly uncontrolled heart rate. He is diuresing very well. He is feeling overall better. The shortness of breath has improved and also the lower extremities edema. The echo is still pending. He denies any symptoms of chest pain or chest discomfort. Objective - Vital Signs Vital signs: Vital Signs Temp 98.1 F 07/10/21 04:00 Pulse 97 07/10/21 04:00 Resp 18 07/10/21 04:00 BP 141/89 07/10/21 04:00 Pulse Ox 97 07/10/21 04:00 Intake & Output 07/09/21 07/10/21 07/10/21 18:59 06:59 18:59 Intake Total 565.333 169.667 Output Total 1000 1850 Balance -434.667 -1680.333 Weight 164.7 kg Intake: Intake, IV Titration 205.333 169.667 Amount Diltiazem 125 mg In 125 Sodium Chloride 0.9% 100 ml @ 5 MG/HR 5 mls/hr IV .Q24H CHANI Rx#:[id number] Heparin Sod,Pork in 0.45% 80.333 169.667 NaCl 25,000 unit In 0.45 % NaCl 1 250ml.bag @ 6.25 UNITS/KG/HR 10 mls/hr IV .Q24H CHANI Rx#:[id number] Oral 360 Output: Urine 1000 1850 Other: Voiding Method Urinal # Voids 3 - Constitutional General appearance: Present: no acute distress - Respiratory Respiratory: bilateral: diminished - Cardiovascular Rhythm: irregularly irregular Heart sounds: normal: S1, S2 - Labs CBC & Chem 7: 07/09/21 08:23 07/08/21 12:08 Labs: Abnormal Lab Results - Last 24 Hours (Table) 07/09/21 07/09/21 07/09/21 Range/Units 08:23 08:23 22:51 RBC 3.62 L (4.30-5.90) m/uL MCV 110.8 H (80.0-100.0) fL MCH 37.7 H (25.0-35.0) pg RDW 16.3 H (11.5-15.5) % Lymphocytes # 0.8 L (1.0-4.8) k/uL Macrocytosis Marked A APTT 30.1 H (22.0-30.0) sec HDL Cholesterol 38.0 L (40.0-60.0) mg/dL Assessment and Plan Assessment: Assessment #1 persistent atrial fibrillation #2 hypertension #3 obesity #4 heart failure with unknown a chill G Plan #1 continue the current dose of Cardizem IV and try to wean the patient from it #2 increase the dose of metoprolol 100 mg by mouth twice a day #3 continue heparin IV and consider oral anticoagulation #4 follow-up on the echo #5 continue Lasix IV #6 continue monitoring the kidney function and electrolytes
[2021-07-10 07:56] LABS: Anisocytosis Slight; Basophils # (A) 0.1 k/uL (0-0.2); Basophils % (A) 1 %; Eosinophils # (A) 0.2 k/uL (0-0.7); Eosinophils % (A) 2 %; HCT 39.8 % (39.0-53.0); HGB 13.4 gm/dL (13.0-17.5); Lymphocytes # (A) 1.2 k/uL (1.0-4.8); Lymphocytes % (A) 17 %; MCH 37.1 pg (25.0-35.0); MCHC 33.7 g/dL (31.0-37.0); MCV 110.1 fL (80.0-100.0); Macrocytosis Marked; Mean Platelet Volume 7.4; Monocytes # (A) 0.4 k/uL (0-1.0); Monocytes % (A) 6 %; Neutrophils % (A) 71 %; Platelet Count 273 k/uL (150-450); RBC 3.61 m/uL (4.30-5.90); RDW 16.2 % (11.5-15.5)
[2021-07-10 08:10] LABS: INR 1.1 (<1.2)
[2021-07-10] MEDS: METOPROLOL TARTRATE 50 MG TAB PO SCH ×2 (09:24→20:05)
[2021-07-10] MEDS: ASPIRIN 81 MG PO SCH (09:24)
[2021-07-10] MEDS: ACETAMINOPHEN TAB 325 MG TAB PO PRN (09:25)
[2021-07-10] MEDS: PROPAFENONE 150 MG TAB PO SCH ×2 (09:25→20:06)
[2021-07-10] MEDS: FUROSEMIDE 10 MG/ML 4 ML VIAL IV SCH ×2 (09:31→20:05)
--- NOTE | 2021-07-10 10:35 | ECHOF ---
Referral Reason:LV function MEASUREMENTS -------- HEIGHT: 162.6 cm WEIGHT: 159.7 kg BP: IVSd: 1.3 cm (0.6 - 1.1) LVIDd: 3.8 cm (3.9 - 5.3) LVPWd: 1.1 cm (0.6 - 1.1) IVSs: 1.5 cm LVIDs: 3.5 cm LVPWs: 1.3 cm Ao Diam: 3.1 cm (2.0 - 3.7) MV EXCURSION: 25.141 mm (> 18.000) MV EF SLOPE: 39 mm/s (70 - 150) AV maxP.88 mmHg AV meanP.27 mmHg FINDINGS -------- Atrial fibrillation. Morbid Obesity The left ventricular size is normal. There is mild concentric left ventricular hypertrophy. Overa ll left ventricular systolic function is mild-moderately impaired with, an EF between 40 - 45 %. The right ventricle is normal in size. The right atrial size is normal. Pt has Aortic Stenosis gradient is underestimated due to poor visualization of valve . The mitral valve was not well visualized. The tricuspid valve was not well visualized. The pulmonic valve was not well visualized. There is no pericardial effusion. 5.0mg OF Lumason UTLIZED: 2 OR MORE WALL SEGMENTS NOT VISUALIZED. CONCLUSIONS -------- 1. Morbid Obesity 2. The left ventricular size is normal. 3. There is mild concentric left ventricular hypertrophy. 4. Overall left ventricular systolic function is mild-moderately impaired with, an EF between 40 - 45 %. 5. The right ventricle is normal in size. 6. The right atrial size is normal. 7. Pt has Aortic Stenosis gradient is underestimated due to poor visualization of valve . 8. 5.0mg OF Lumason UTLIZED: 2 OR MORE WALL SEGMENTS NOT VISUALIZED. 9. The mitral valve was not well visualized. 10. The tricuspid valve was not well visualized. 11. The pulmonic valve was not well visualized. 12. There is no pericardial effusion. RN CHRONIC: Olesya Vera, MICHELLE
[2021-07-10] MEDS: HEPARIN SODIUM 1,000 UN/ML (10ML VL) IV PRN ×2 (12:31→20:05)
[2021-07-10] MEDS: DILTIAZEM 125 MG in SODIUM CHLORIDE 0.9% 100 ML IV SCH (13:31)
--- NOTE | 2021-07-10 23:16 | P.PN ---
Subjective Progress Note Date: 07/10/21 Patient is a 66-year-old male with a known history of paroxysmal atrial fibrillation, hypertension, hyperlipidemia, generalized pain history of EFRAÍN/cardioversion presents ER with the complaints of worsening shortness of breath and leg swelling. Patient does have history of atrial fibrillation with rapid regular rate and for the past 2 months he has been having on and off rapid ventricular rates. Denied any complaints of chest pain. No complains of headache or dizziness or lightheadedness. Patient states that he has been gaining weight and worsening leg swelling.. In the ER patient was found to be in atrial fibrillation with rapid regular rate. Was started on Cardizem drip and heparin drip. Denied any cough or sputum production. No fever no chills. Chest x-ray showed no evidence for acute pulmonary disease. Laboratory data showed WBC 7.6, hemoglobin 15.0 and platelets 283 Sodium 138 potassium 4.3 chloride 104 BUN 14 and creatinine 0.71 and magnesium 1.6, proBNP 863 TSH 1.7-0 07/10/2021 Patient is currently sitting on the bed comfortably. Leg swelling is improving. No complaints of chest pain and shortness of breath is improving and patient is able to walk to the bathroom without much dyspnea. No complaints nausea vomiting abdominal pain or diarrhea. No headache or dizziness lightheadedness. 2D echocardiogram showed ejection fraction 40 to 45% patient has aortic stenosis. Patient is being continued on Lasix 40 mg every 12. Continued on Cardizem drip. Heart rate is in 100s today. Cardiology is on board. Active Medications Generic Name Dose Route Start Last Admin Trade Name Freq PRN Reason Stop Dose Admin Acetaminophen 650 mg 07/09/21 15:41 07/10/21 09:25 Acetaminophen Tab 325 Mg Tab PO 650 mg Q6HR PRN Administration Fever and/ or Mild Pain Aspirin 81 mg 07/09/21 09:00 07/10/21 09:24 Aspirin 81 Mg PO 81 mg DAILY CHANI Administration Furosemide 40 mg 07/09/21 09:00 07/10/21 20:05 Furosemide 10 Mg/Ml 4 Ml Vial IV 40 mg Q12HR CHANI Administration Heparin Sodium (Porcine) 0 unit 07/09/21 08:07 07/10/21 20:05 Heparin Sodium 1,000 Un/Ml (10ml Vl) IV 4,000 unit PER PROTOCOL PRN Administration Low PTT Protocol Diltiazem HCl 125 mg/ Sodium 125 mls @ 5 mls/hr 07/08/21 12:30 07/10/21 13:31 Chloride IV 5 mg/hr .Q24H CHANI 5 mls/hr Administration 5 MG/HR Heparin Sodium/Sodium Chloride 250 mls @ 10 mls/hr 07/09/21 08:15 07/10/21 2 0:06 25,000 unit/ Sodium Chloride IV 16.2 units/kg/hr .Q24H CHANI 25.92 mls/hr Titration Protocol 6.25 UNITS/KG/HR Metoprolol Tartrate 100 mg 07/10/21 09:00 07/10/21 20:05 Metoprolol Tartrate 50 Mg Tab PO 100 mg BID CHANI Administration Nitroglycerin 0.4 mg 07/08/21 13:23 Nitroglycerin Sl Tabs 0.4 Mg Tab SUBLINGUAL Q5M PRN Chest Pain Propafenone HCl 150 mg 07/09/21 09:00 07/10/21 20:06 Propafenone 150 Mg Tab PO 150 mg BID CHANI Administration Objective - Vital Signs Vital signs: Vital Signs Temp 97.9 F 07/10/21 08:00 Pulse 101 H 07/10/21 08:00 Resp 18 07/10/21 08:00 BP 127/81 07/10/21 08:00 Pulse Ox 97 07/10/21 08:00 Intake & Output 07/09/21 07/10/21 07/10/21 18:59 06:59 18:59 Intake Total 565.333 169.667 Output Total 1000 1850 425 Balance -434.667 -1680.333 -425 Weight 164.7 kg Intake: Intake, IV Titration 205.333 169.667 Amount Diltiazem 125 mg In 125 Sodium Chloride 0.9% 100 ml @ 5 MG/HR 5 mls/hr IV .Q24H [facility] Rx#:[id number] Heparin Sod,Pork in 0.45% 80.333 169.667 NaCl 25,000 unit In 0.45 % NaCl 1 250ml.bag @ 6.25 UNITS/KG/HR 10 mls/hr IV .Q24H [facility] Rx#:[id number] Oral 360 Output: Urine 1000 1850 425 Other: Voiding Method Urinal # Voids 3 1 - Exam PHYSICAL EXAMINATION: Patient is lying in the bed comfortably, no acute distress, awake alert and oriented.. HEENT: Normocephalic. Neck is supple. Pupils reactive. Nostrils clear. Oral cavity is moist. Neck reveals no JVD, carotid bruits, or thyromegaly. CHEST EXAMINATION: Trachea is central. Symmetrical expansion. Lung mcdonald clear to auscultation and percussion. CARDIAC: Normal S1, S2 with no gallops. No murmurs ABDOMEN: Soft. Bowel sounds normal. No organomegaly. No abdominal bruits. Extremities: Bilateral 2+ leg edema. No clubbing or cyanosis Neurologically awake, alert, oriented x3 with well-coordinated movements. No focal deficits noted Skin: No rash or skin lesions. Psychiatric: Coperative. Nonsuicidal Musculoskeletal: No joint swelling or deformity. Normal range of motion. - Labs CBC & Chem 7: 07/10/21 07:17 07/08/21 12:08 Labs: Abnormal Lab Results - Last 24 Hours (Table) 07/09/21 07/09/21 07/10/21 Range/Units 08:23 22:51 07:17 RBC 3.61 L (4.30-5.90) m/uL MCV 110.1 H (80.0-100.0) fL MCH 37.1 H (25.0-35.0) pg RDW 16.2 H (11.5-15.5) % Macrocytosis Marked A APTT 30.1 H (22.0-30.0) sec HDL Cholesterol 38.0 L (40.0-60.0) mg/dL Assessment and Plan Assessment: Worsening shortness of breath and leg swelling due to acute CHF EF 40- 45%.Systolic dysfunction Paroxysmal Atrial fibrillation with rapid ventricular rate. With history of EFRAÍN/cardioversion. Hypertension Morbid obesity BMI 49.2 DVT prophylaxis patient is already on heparin drip Plan: Patient was started on Lasix 40 mg IV twice a day and monitor renal function. Continue with telemetry monitoring. Continue with Cardizem drip and restarted metoprolol as per his home dose. Current with anticoagulation with heparin. 2-D echo was done. Cardiology is on board. Continue to follow closely. Time with Patient: Greater than 30
[2021-07-11] MEDS: HEPARIN SOD,PORK IN 0.45% NACL 25,000 UNIT in 0.45% NACL 1 250ML.BAG IV SCH ×3 (02:37→22:19)
[2021-07-11 03:08] LABS: Anisocytosis Slight; Basophils % (A) 1 %; Eosinophils # (A) 0.2 k/uL (0-0.7); Eosinophils % (A) 3 %; HCT 38.9 % (39.0-53.0); HGB 13.1 gm/dL (13.0-17.5); Lymphocytes # (A) 1.6 k/uL (1.0-4.8); Lymphocytes % (A) 24 %; MCH 37.5 pg (25.0-35.0); MCHC 33.7 g/dL (31.0-37.0); MCV 111.1 fL (80.0-100.0); Macrocytosis Marked; Mean Platelet Volume 7.3; Monocytes # (A) 0.5 k/uL (0-1.0); Monocytes % (A) 7 %; Neutrophils % (A) 61 %; Platelet Count 251 k/uL (150-450); RDW 16.2 % (11.5-15.5); WBC 6.5 k/uL (3.8-10.6)
[2021-07-11 03:39] LABS: African American GFR (CKD) >90 (>60 ml/min/1.73 sqM); Anion Gap 8 mmol/L; Blood Urea Nitrogen 18 mg/dL (9-20); Calcium 9.2 mg/dL (8.4-10.2); Carbon Dioxide 29 mmol/L (22-30); Chloride 96 mmol/L (98-107); Glucose 123 mg/dL (74-99); Non-African American GFR(CKD) >90 (>60 ml/min/1.73 sqM); Potassium 3.3 mmol/L (3.5-5.1); Sodium 133 mmol/L (137-145)
[2021-07-11] MEDS: ACETAMINOPHEN TAB 325 MG TAB PO PRN ×2 (08:18→20:08)
[2021-07-11] MEDS: METOPROLOL TARTRATE 50 MG TAB PO SCH ×2 (08:19→20:04)
[2021-07-11] MEDS: FUROSEMIDE 10 MG/ML 4 ML VIAL IV SCH ×2 (08:19→20:04)
[2021-07-11] MEDS: ASPIRIN 81 MG PO SCH (08:19)
[2021-07-11] MEDS: PROPAFENONE 150 MG TAB PO SCH (08:19)
--- NOTE | 2021-07-11 09:13 | P.PN ---
Subjective Progress Note Date: 07/11/21 Principal diagnosis: Persistent atrial fibrillation The patient was seen this morning. He is feeling better internal shortness of breath and lower extremities edema. He continues to be on Lasix IV in the kidney function seems to be monitored. He continues to be in and out atrial fibrillation. He is on metoprolol 100 mg by mouth twice a day which we'll continue and also he is on Lasix IV and also he is on heparin IV. He is in process of being evaluated for oral anticoagulation. The echo showed mildly impaired LV function was EF between 40-45%. This is likely related to tachycardia. Objective - Vital Signs Vital signs: Vital Signs Temp 97.4 F L 07/11/21 08:05 Pulse 84 07/11/21 08:05 Resp 16 07/11/21 08:05 BP 134/78 07/11/21 08:05 Pulse Ox 96 07/11/21 08:05 Intake & Output 07/10/21 07/11/21 07/11/21 18:59 06:59 18:59 Intake Total 951.667 753.517 240 Output Total 925 1999 Balance 26.667 -1246.483 240 Weight 163.3 kg Intake: Intake, IV Titration 351.667 268.517 Amount Diltiazem 125 mg In 101.667 Sodium Chloride 0.9% 100 ml @ 5 MG/HR 5 mls/hr IV .Q24H [facility] Rx#:[id number] Heparin Sod,Pork in 0.45% 250.000 268.517 NaCl 25,000 unit In 0.45 % NaCl 1 250ml.bag @ 6.25 UNITS/KG/HR 10 mls/hr IV .Q24H [facility] Rx#:[id number] Oral 600 485 240 Output: Urine 925 2000 Other: Voiding Method Urinal Urinal Diaper # Voids 1 1 # Bowel Movements 0 - Constitutional General appearance: Present: no acute distress - Respiratory Respiratory: bilateral: rales - Cardiovascular Rhythm: irregularly irregular Heart sounds: normal: S1, S2 Abnormal Heart Sounds: Present: systolic murmur - Labs CBC & Chem 7: 07/11/21 02:48 07/11/21 02:48 Labs: Abnormal Lab Results - Last 24 Hours (Table) 07/10/21 07/10/21 07/11/21 Range/Units 11:24 18:23 02:48 RBC (4.30-5.90) m/uL Hct (39.0-53.0) % MCV (80.0-100.0) fL MCH (25.0-35.0) pg RDW (11.5-15.5) % Macrocytosis APTT 35.8 H 35.7 H 60.6 H (22.0-30.0) sec Sodium (137-145) mmol/L Potassium (3.5-5.1) mmol/L Chloride (98-107) mmol/L Glucose (74-99) mg/dL 07/11/21 07/11/21 Range/Units 02:48 02:48 RBC 3.50 L (4.30-5.90) m/uL Hct 38.9 L (39.0-53.0) % MCV 111.1 H (80.0-100.0) fL MCH 37.5 H (25.0-35.0) pg RDW 16.2 H (11.5-15.5) % Macrocytosis Marked A APTT (22.0-30.0) sec Sodium 133 L (137-145) mmol/L Potassium 3.3 L (3.5-5.1) mmol/L Chloride 96 L (98-107) mmol/L Glucose 123 H (74-99) mg/dL Assessment and Plan Assessment: Assessment #1 persistent atrial fibrillation #2 hypertension #3 obesity #4 heart failure exacerbation related to heart failure with reduced ejection fraction Plan #1 continue Lasix IV #2 continue monitoring the kidney function and electrolytes #3 he is in process of being evaluated for oral anticoagulation. Meanwhile we'll continue heparin IV #4 continue the current dose of metoprolol #5 add small dose of lisinopril #6 follow-up with the patient
[2021-07-11] MEDS ORDERED: POTASSIUM CHLORIDE ER 20 MEQ TAB.ER PO STA (11:38)
[2021-07-11] MEDS ORDERED: Potassium Replacement Protocol 1 EACH MISC MISCELLANE PRN (11:39)
[2021-07-11] MEDS: DILTIAZEM 125 MG in SODIUM CHLORIDE 0.9% 100 ML IV SCH (12:29)
--- NOTE | 2021-07-12 00:30 | P.PN ---
Subjective Progress Note Date: 07/11/21 Patient is a 66-year-old male with a known history of paroxysmal atrial fibrillation, hypertension, hyperlipidemia, generalized pain history of EFRAÍN/cardioversion presents ER with the complaints of worsening shortness of breath and leg swelling. Patient does have history of atrial fibrillation with rapid regular rate and for the past 2 months he has been having on and off rapid ventricular rates. Denied any complaints of chest pain. No complains of headache or dizziness or lightheadedness. Patient states that he has been gaining weight and worsening leg swelling.. In the ER patient was found to be in atrial fibrillation with rapid regular rate. Was started on Cardizem drip and heparin drip. Denied any cough or sputum production. No fever no chills. Chest x-ray showed no evidence for acute pulmonary disease. Laboratory data showed WBC 7.6, hemoglobin 15.0 and platelets 283 Sodium 138 potassium 4.3 chloride 104 BUN 14 and creatinine 0.71 and magnesium 1.6, proBNP 863 TSH 1.7-0 07/10/2021 Patient is currently sitting on the bed comfortably. Leg swelling is improving. No complaints of chest pain and shortness of breath is improving and patient is able to walk to the bathroom without much dyspnea. No complaints nausea vomiting abdominal pain or diarrhea. No headache or dizziness lightheadedness. 2D echocardiogram showed ejection fraction 40 to 45% patient has aortic stenosis. Patient is being continued on Lasix 40 mg every 12. Continued on Cardizem drip. Heart rate is in 100s today. Cardiology is on board. 07/11/2021 Patient is breathing status is improving. Still having bilateral lower extremity swelling. Currently on IV Lasix and monitor renal function. Patient continues to be in atrial fibrillation. Also heparin drip. Possible change to oral anticoagulation in the next 24 hours. Follow-up CBC and BMP tomorrow. Otherwise patient is awake alert oriented x3. No headache or dizziness or lightheadedness. No fever no chills. Symptomatically improving. Active Medications Generic Name Dose Route Start Last Admin Trade Name Freq PRN Reason Stop Dose Admin Acetaminophen 650 mg 07/09/21 15:41 07/10/21 09:25 Acetaminophen Tab 325 Mg Tab PO 650 mg Q6HR PRN Administration Fever and/ or Mild Pain Aspirin 81 mg 07/09/21 09:00 07/10/21 09:24 Aspirin 81 Mg PO 81 mg DAILY [facility] Administration Furosemide 40 mg 07/09/21 09:00 07/10/21 20:05 Furosemide 10 Mg/Ml 4 Ml Vial IV 40 mg Q12HR [facility]ANI Administration Heparin Sodium (Porcine) 0 unit 07/09/21 08:07 07/10/21 20:05 Heparin Sodium 1,000 Un/Ml (10ml Vl) IV 4,000 unit PER PROTOCOL PRN Administration Low PTT Protocol Diltiazem HCl 125 mg/ Sodium 125 mls @ 5 mls/hr 07/08/21 12:30 07/10/21 13:31 Chloride IV 5 mg/hr .Q24H [facility] 5 mls/hr Administration 5 MG/HR Heparin Sodium/Sodium Chloride 250 mls @ 10 mls/hr 07/09/21 08:15 07/10/21 20:06 25,000 unit/ Sodium Chloride IV 16.2 units/kg/hr .Q24H [facility] 25.92 mls/hr Titration Protocol 6.25 UNITS/KG/HR Metoprolol Tartrate 100 mg 07/10/21 09:00 07/10/21 20:05 Metoprolol Tartrate 50 Mg Tab PO 100 mg BID CHANI Administration Nitroglycerin 0.4 mg 07/08/21 13:23 Nitroglycerin Sl Tabs 0.4 Mg Tab SUBLINGUAL Q5M PRN Chest Pain Propafenone HCl 150 mg 07/09/21 09:00 07/10/21 20:06 Propafenone 150 Mg Tab PO 150 mg BID CHANI Administration Objective - Vital Signs Vital signs: Vital Signs Temp 98.1 F 07/11/21 20:00 Pulse 82 07/11/21 20:00 Resp 18 07/11/21 20:00 BP 128/80 07/11/21 20:00 Pulse Ox 98 07/11/21 20:00 Intake & Output 07/11/21 07/11/21 07/12/21 06:59 18:59 06:59 Intake Total 180.472 6859.721 735 Output Total 1999 975 800 Balance -1246.483 56.721 -65 Weight 163.3 kg Intake: Intake, IV Titration 268.517 314.721 250 Amount Diltiazem 125 mg In 114.833 Sodium Chloride 0.9% 100 ml @ 5 MG/HR 5 mls/hr IV .Q24H [facility] Rx#:[id number] Heparin Sod,Pork in 0.45% 268.517 199.888 250 NaCl 25,000 unit In 0.45 % NaCl 1 250ml.bag @ 6.25 UNITS/KG/HR 10 mls/hr IV .Q24H [facility] Rx#:[id number] Oral 485 717 485 Output: Urine 2000 975 800 Other: Voiding Method Urinal Urinal Urinal Diaper Diaper # Voids 1 - Exam PHYSICAL EXAMINATION: Patient is lying in the bed comfortably, no acute distress, awake alert and oriented.. HEENT: Normocephalic. Neck is supple. Pupils reactive. Nostrils clear. Oral cavity is moist. Neck reveals no JVD, carotid bruits, or thyromegaly. CHEST EXAMINATION: Trachea is central. Symmetrical expansion. Lung mcdonald clear to auscultation and percussion. CARDIAC: Normal S1, S2 with no gallops. No murmurs ABDOMEN: Soft. Bowel sounds normal. No organomegaly. No abdominal bruits. Extremities: Bilateral 2+ leg edema. No clubbing or cyanosis Neurologically awake, alert, oriented x3 with well-coordinated movements. No focal deficits noted Skin: No rash or skin lesions. Psychiatric: Coperative. Nonsuicidal Musculoskeletal: No joint swelling or deformity. Normal range of motion. - Labs CBC & Chem 7: 07/11/21 02:48 07/11/21 15:36 Labs: Abnormal Lab Results - Last 24 Hours (Table) 07/11/21 07/11/21 07/11/21 Range/Units 02:48 02:48 02:48 RBC 3.50 L (4.30-5.90) m/uL Hct 38.9 L (39.0-53.0) % MCV 111.1 H (80.0-100.0) fL MCH 37.5 H (25.0-35.0) pg RDW 16.2 H (11.5-15.5) % Macrocytosis Marked A APTT 60.6 H (22.0-30.0) sec Sodium 133 L (137-145) mmol/L Potassium 3.3 L (3.5-5.1) mmol/L Chloride 96 L (98-107) mmol/L Glucose 123 H (74-99) mg/dL Assessment and Plan Assessment: Worsening shortness of breath and leg swelling due to acute CHF EF 40- 45%.Systolic dysfunction Paroxysmal Atrial fibrillation with rapid ventricular rate. With history of EFRAÍN/cardioversion. Hypertension Morbid obesity BMI 49.2 DVT prophylaxis patient is already on heparin drip Plan: Patient was started on Lasix 40 mg IV twice a day and monitor renal function. Continue with telemetry monitoring. Continue with Cardizem drip and restarted metoprolol as per his home dose. Current with anticoagulation with heparin. 2-D echo was done. Cardiology is on board. Continue to follow closely. Time with Patient: Greater than 30
[2021-07-12] MEDS: ASPIRIN 81 MG PO SCH (08:28)
[2021-07-12] MEDS: FUROSEMIDE 10 MG/ML 4 ML VIAL IV SCH (08:28)
[2021-07-12] MEDS: METOPROLOL TARTRATE 50 MG TAB PO SCH ×2 (08:28→22:08)
[2021-07-12 08:31] LABS: Anisocytosis Slight; Basophils % (A) 1 %; Eosinophils # (A) 0.2 k/uL (0-0.7); Eosinophils % (A) 2 %; HGB 13.5 gm/dL (13.0-17.5); Lymphocytes # (A) 1.2 k/uL (1.0-4.8); Lymphocytes % (A) 20 %; MCH 37.1 pg (25.0-35.0); MCHC 32.9 g/dL (31.0-37.0); MCV 112.7 fL (80.0-100.0); Macrocytosis Marked; Mean Platelet Volume 7.2; Monocytes # (A) 0.5 k/uL (0-1.0); Monocytes % (A) 8 %; Neutrophils % (A) 65 %; Platelet Count 265 k/uL (150-450); RBC 3.64 m/uL (4.30-5.90); RDW 16.2 % (11.5-15.5); WBC 6.2 k/uL (3.8-10.6)
[2021-07-12] MEDS: ACETAMINOPHEN TAB 325 MG TAB PO PRN (08:35)
[2021-07-12 09:07] LABS: African American GFR (CKD) >90 (>60 ml/min/1.73 sqM); Anion Gap 7 mmol/L; Blood Urea Nitrogen 15 mg/dL (9-20); Calcium 9.7 mg/dL (8.4-10.2); Carbon Dioxide 31 mmol/L (22-30); Chloride 98 mmol/L (98-107); Glucose 135 mg/dL (74-99); Non-African American GFR(CKD) >90 (>60 ml/min/1.73 sqM); Potassium 3.7 mmol/L (3.5-5.1); Sodium 136 mmol/L (137-145)
[2021-07-12] MEDS: HEPARIN SOD,PORK IN 0.45% NACL 25,000 UNIT in 0.45% NACL 1 250ML.BAG IV SCH ×2 (09:56→20:03)
--- NOTE | 2021-07-12 10:56 | P.PN ---
Subjective This is a pleasant 66-year-old male past medical history significant for paroxysmal atrial fibrillation status post cardioversion 2018, hypertension, dyslipidemia and morbid obesity. He follows in the office with Dr. Degroot. He is seen and examined sitting up on the edge of the bed in no acute distress. Review of office records reveal that he has been trialed and Eliquis in the past however is unable to afford and therefore does not take at this time. He last took Eliquis in April 2021. He continues to be in atrial fibrillation with controlled ventricular rates. Echocardiogram obtained on this admission reveals impaired LV systolic function with ejection fraction 40-45%. Blood pressure 111/62 heart rate 88 afebrile maintaining oxygen saturation on nasal cannula. 24-hour urine output is 1775 mL. Laboratory data reviewed, WBC 6.2, hemoglobin 13.5, platelets 265, sodium 136, potassium 3.7, creatinine 0.72. Currently zia ntained on aspirin 81 mg daily, Lasix 40 mg IV twice a day, heparin infusion, Cardizem infusion lisinopril 2.5 mg daily, Lopressor 100 mg twice a day and hypokalemia protocol. GENERAL: Well-appearing, well-nourished and in no acute distress. Obese. NECK: Supple without JVD or thyromegaly. LUNGS: Breath sounds clear to auscultation bilaterally. Respiration equal and unlabored. No wheezes, rales or rhonchi. Diminished bilaterally. HEART: Irregular rate and rhythm with systolic ejection murmur at the base, no rubs or gallops. S1 and S2 heard. EXTREMITIES: Normal range of motion, 1+ bilateral lower extremity pitting edema. No clubbing or cyanosis. Peripheral pulses intact. ASSESSMENT Acute systolic heart failure Paroxysmal atrial fibrillation with fluctuating ventricular rates Hypertension Morbid obesity, BMI 50 PLAN Lengthy discussion had with the patient regarding the importance of long-term anticoagulation. We will check the cost of Xarelto 20 mg daily with case management. Continue heparin infusion at this time until anticoagulation has been fully addressed. If NOAC is not covered we will initiate Coumadin. Discontinue Cardizem infusion. Transition to oral diuretics. Continue metoprolol for rate control. Increase lisinopril as tolerated. Further recommendations to follow based upon clinical course. Nurse Practitioner note has been reviewed, I agree with a documented findings and plan of care. Patient was seen and examined. Objective - Vital Signs Vital signs: Vital Signs Temp 98.6 F 07/12/21 08:00 Pulse 88 07/12/21 08:00 Resp 16 07/12/21 08:00 BP 111/62 07/12/21 08:00 Pulse Ox 99 07/12/21 08:00 Intake & Output 07/11/21 07/12/21 07/12/21 18:59 06:59 18:59 Intake Total 1761.497 5392 490 Output Total 975 800 600 Balance 56.721 420 -110 Weight 162.6 kg Intake: Intake, IV Titration 314.721 250 250 Amount Diltiazem 125 mg In 114.833 Sodium Chloride 0.9% 100 ml @ 5 MG/HR 5 mls/hr IV .Q24H [facility] Rx#:[id number] Heparin Sod,Pork in 0.45% 199.888 250 250 NaCl 25,000 unit In 0.45 % NaCl 1 250ml.bag @ 6.25 UNITS/KG/HR 10 mls/hr IV .Q24H [facility] Rx#:[id number] Oral 717 970 240 Output: Urine 975 800 600 Other: Voiding Method Urinal Urinal Diaper Diaper - Labs CBC & Chem 7: 07/12/21 07:48 07/12/21 07:48 Labs: Abnormal Lab Results - Last 24 Hours (Table) 07/12/21 07/12/21 07/12/21 Range/Units 07:48 07:48 07:48 RBC 3.64 L (4.30-5.90) m/uL MCV 112.7 H (80.0-100.0) fL MCH 37.1 H (25.0-35.0) pg RDW 16.2 H (11.5-15.5) % Macrocytosis Marked A APTT 59.4 H (22.0-30.0) sec Sodium 136 L (137-145) mmol/L Carbon Dioxide 31 H (22-30) mmol/L Glucose 135 H (74-99) mg/dL
[2021-07-12] MEDS: FUROSEMIDE 40 MG TAB PO SCH (16:12)
[2021-07-12 16:49] LABS: INR 1.2 (<1.2); Prothrombin Time 12.6 sec (9.0-12.0)
[2021-07-12] MEDS ORDERED: WARFARIN 7.5 MG TAB PO ONE (18:00)
[2021-07-13] MEDS: METOPROLOL TARTRATE 50 MG TAB PO SCH ×2 (08:01→21:42)
[2021-07-13] MEDS: FUROSEMIDE 40 MG TAB PO SCH ×2 (08:02→15:15)
[2021-07-13] MEDS: ASPIRIN 81 MG PO SCH (08:02)
[2021-07-13] MEDS: ACETAMINOPHEN TAB 325 MG TAB PO PRN (08:12)
[2021-07-13] MEDS: HEPARIN SOD,PORK IN 0.45% NACL 25,000 UNIT in 0.45% NACL 1 250ML.BAG IV SCH ×2 (08:13→16:03)
[2021-07-13 09:05] LABS: INR 1.1 (<1.2); Partial Thromboplastin Time 57.7 sec (22.0-30.0); Prothrombin Time 11.8 sec (9.0-12.0)
[2021-07-13 09:16] LABS: Basophils % (A) 1 %; Eosinophils # (A) 0.1 k/uL (0-0.7); Eosinophils % (A) 3 %; HCT 40.2 % (39.0-53.0); HGB 13.8 gm/dL (13.0-17.5); Lymphocytes % (A) 23 %; MCH 38.1 pg (25.0-35.0); MCHC 34.2 g/dL (31.0-37.0); MCV 111.3 fL (80.0-100.0); Macrocytosis Marked; Mean Platelet Volume 7.7; Monocytes # (A) 0.4 k/uL (0-1.0); Monocytes % (A) 9 %; Neutrophils # (A) 2.6 k/uL (1.3-7.7); Neutrophils % (A) 61 %; Platelet Count 248 k/uL (150-450); RBC 3.61 m/uL (4.30-5.90); WBC 4.3 k/uL (3.8-10.6)
[2021-07-13 09:26] LABS: African American GFR (CKD) >90 (>60 ml/min/1.73 sqM); Anion Gap 6 mmol/L; Blood Urea Nitrogen 17 mg/dL (9-20); Calcium 9.4 mg/dL (8.4-10.2); Carbon Dioxide 31 mmol/L (22-30); Chloride 98 mmol/L (98-107); Glucose 125 mg/dL (74-99); Magnesium 1.8 mg/dL (1.6-2.3); Non-African American GFR(CKD) >90 (>60 ml/min/1.73 sqM); Potassium 3.5 mmol/L (3.5-5.1); Sodium 135 mmol/L (137-145)
[2021-07-13 10:21] LABS: Anisocytosis (M) Present
--- NOTE | 2021-07-13 11:26 | P.PN ---
Subjective This is a pleasant 66-year-old male past medical history significant for paroxysmal atrial fibrillation status post cardioversion 2018, hypertension, dyslipidemia and morbid obesity. He follows in the office with Dr. Degroot. He is seen and examined sitting up on the edge of the bed in no acute distress. Review of office records reveal that he has been trialed and Eliquis in the past however is unable to afford and therefore does not take at this time. He last took Eliquis in April 2021. He continues to be in atrial fibrillation with controlled ventricular rates. Echocardiogram obtained on this admission reveals impaired LV systolic function with ejection fraction 40-45%. Blood pressure 111/62 heart rate 88 afebrile maintaining oxygen saturation on nasal cannula. 24-hour urine output is 1775 mL. Laboratory data reviewed, WBC 6.2, hemoglobin 13.5, platelets 265, sodium 136, potassium 3.7, creatinine 0.72. Currently zia ntained on aspirin 81 mg daily, Lasix 40 mg IV twice a day, heparin infusion, Cardizem infusion lisinopril 2.5 mg daily, Lopressor 100 mg twice a day and hypokalemia protocol. 07/13/2021 Patient seen and examined sitting up in bed in no acute distress. Case management evaluated his insurance and medication needs and determined she has no prescription drug coverage. Therefore Coumadin was initiated yesterday. He continues to be in atrial fibrillation with controlled rates in the 70s to 90s. Blood pressure is 134/82. Laboratory data reviewed, WBC 4.3, hemoglobin 13.8, platelets 248, INR 1.1. 24-hour urine output is 2.1 L, maintaining a negative fluid balance. Currently maintained on Lasix 40 mg by mouth twice a day, lisinopril 2.5 mg daily, metoprolol 100 mg twice a day, heparin infusion and warfarin. Initially the patient states he is not taking warfarin, he would rather have a stroke. After more consideration and discussion he is agreeable. GENERAL: Well-appearing, well-nourished and in no acute distress. Obese. NECK: Supple without JVD or thyromegaly. LUNGS: Breath sounds clear to auscultation bilaterally. Respiration equal and unlabored. No wheezes, rales or rhonchi. Diminished bilaterally. HEART: Irregular rate and rhythm with systolic ejection murmur at the base, no rubs or gallops. S1 and S2 heard. EXTREMITIES: Normal range of motion, 1+ bilateral lower extremity pitting edema. No clubbing or cyanosis. Peripheral pulses intact. ASSESSMENT Acute systolic heart failure, EF 40-45% Paroxysmal atrial fibrillation with fluctuating ventricular rates, currently in afib. Hypertension Morbid obesity, BMI 50 PLAN Discussed importance of warfarin for prevention of CVA. Continue metoprolol for rate control. Increase lisinopril to 5 mg daily, give additional dose of 2.5 mg today. He states he will follow up with Dr. Castillo for warfarin dosing. Target INR 2-3, no need for bridging. Home dose of 5 mg daily with repeat PT/INR in 3 days. Stable for discharge from a cardiac perspective. Follow up with Dr. Degroot in 1-2 weeks. Nurse Practitioner note has been reviewed, I agree with a documented findings and plan of care. Patient was seen and examined. Objective - Vital Signs Vital signs: Vital Signs Temp 97.2 F L 07/13/21 08:06 Pulse 92 07/13/21 08:06 Resp 16 07/13/21 08:06 BP 134/82 07/13/21 08:06 Pulse Ox 98 07/13/21 08:06 Intake & Output 07/12/21 07/13/21 07/13/21 18:59 06:59 18:59 Intake Total 1390 250 270 Output Total 600 1500 200 Balance 790 -1250 70 Weight 162.2 kg Intake: IV 20 Invasive Line 3 20 Intake, IV Titration 250 250 250 Amount Heparin Sod,Pork in 0.45% 250 250 250 NaCl 25,000 unit In 0.45 % NaCl 1 250ml.bag @ 6.25 UNITS/KG/HR 10 mls/hr IV .Q24H [facility] Rx#:[id number] Oral 1140 0 Output: Urine 600 1500 200 Other: Voiding Method Urinal Urinal # Voids 1 - Labs CBC & Chem 7: 07/13/21 07:56 07/13/21 07:56 Labs: Abnormal Lab Results - Last 24 Hours (Table) 07/12/21 07/13/21 Range/Units 15:50 07:56 PT 12.6 H (9.0-12.0) sec INR 1.2 H (<1.2) APTT 57.7 H (22.0-30.0) sec
[2021-07-13] MEDS ORDERED: WARFARIN 5 MG TAB PO ONE (18:00)
[2021-07-14] MEDS: HEPARIN SOD,PORK IN 0.45% NACL 25,000 UNIT in 0.45% NACL 1 250ML.BAG IV SCH (07:17)
[2021-07-14 08:16] VITALS: BP 140/82; RESP 18
[2021-07-14 08:27] VITALS: PULSE 91; TEMP 98.2
[2021-07-14 08:41] LABS: HCT 39.8 % (39.0-53.0); HGB 13.3 gm/dL (13.0-17.5); MCH 37.3 pg (25.0-35.0); MCHC 33.5 g/dL (31.0-37.0); MCV 111.3 fL (80.0-100.0); Macrocytosis Marked; Mean Platelet Volume 7.4; Platelet Count 268 k/uL (150-450); RBC 3.58 m/uL (4.30-5.90); RDW 15.9 % (11.5-15.5); WBC 4.9 k/uL (3.8-10.6)
[2021-07-14 08:48] LABS: INR 1.4 (<1.2); Partial Thromboplastin Time 59.6 sec (22.0-30.0); Prothrombin Time 14.1 sec (9.0-12.0)
--- NOTE | 2021-07-14 08:53 | P.DS ---
Providers Date of admission: 07/08/21 13:16 Expected date of discharge: 07/13/21 Attending physician: Chico Castillo Consults: 07/08/21 13:24 Consult Physician Urgent Consulting Provider: [facility] Consult Reason/Comments: A. fib with rapid ventricular response Do you want consulting provider notified?: Yes Primary care physician: Chico Castillo [facility] Course: Final Diagnoses: Acute systolic heart failure, EF 40-45% Paroxysmal atrial fibrillation with RVR, currently controlled in a patient with history of EFRAÍN/cardioversion. Hypertension Morbid obesity, BMI 50 This is 66-year-old gentleman admitted with proximal atrial fibrillation,acute systolic CHF and multiple other medical issues. Evaluated by cardiology. Diuresed on IV push diuretics, received antiarrhythmics and anticoagulated on heparin protocol. Telemetry controlled A. fib, INR 1.1. Denies chest pain, palpitations or shortness of breath. Significant clinical improvement. Cleared by cardiology for discharge on Coumadin with no need for bridging. Patient will be discharged home today in a stable condition with guarded prognosis. The impression and plan of care has been dictated as directed. : I performed a history and examination of this patient, discussed the same with the dictator. I agree with the dictator's note ,documented as a scribe. Any additional findings or plans will be noted. Patient Condition at Discharge: Stable Plan - Discharge Summary Discharge Rx Participant: No New Discharge Prescriptions: New Furosemide [Lasix] 40 mg PO BID@0900,1600 #60 tab Metoprolol Tartrate [Lopressor] 100 mg PO BID #60 tab lisinopriL [Zestril] 5 mg PO DAILY #30 tab Warfarin [Coumadin] 5 mg PO DAILY@1800 #10 tab Continue Aspirin EC [Ecotrin Low Dose] 81 mg PO DAILY Discontinued Metoprolol Tartrate [Lopressor] 50 mg PO BID Propafenone [Rythmol] 150 mg PO BID Discharge Medication List Aspirin EC [Ecotrin Low Dose] 81 mg PO DAILY 07/08/21 [History] Furosemide [Lasix] 40 mg PO BID@0900,1600 #60 tab 07/13/21 [Rx] Metoprolol Tartrate [Lopressor] 100 mg PO BID #60 tab 07/13/21 [Rx] Warfarin [Coumadin] 5 mg PO DAILY@1800 #10 tab 07/13/21 [Rx] lisinopriL [Zestril] 5 mg PO DAILY #30 tab 07/13/21 [Rx] Follow up Appointment(s)/Referral(s): Milton Degroot MD [STAFF PHYSICIAN] - 2 Weeks Chico Castillo DO [Primary Care Provider] - 3 Days Ambulatory/Diagnostic Orders: Prothrombin Time INR [LAB.AMB] Time Frame: 07/15/21, Location: None Selected
[2021-07-14] MEDS ORDERED: lisinopriL 5 MG TAB PO SCH (09:00)
--- NOTE | 2021-07-14 09:05 | P.PN ---
Subjective This is a pleasant 66-year-old male past medical history significant for paroxysmal atrial fibrillation status post cardioversion 2018, hypertension, dyslipidemia and morbid obesity. He follows in the office with Dr. Degroot. He is seen and examined sitting up on the edge of the bed in no acute distress. Review of office records reveal that he has been trialed and Eliquis in the past however is unable to afford and therefore does not take at this time. He last took Eliquis in April 2021. He continues to be in atrial fibrillation with controlled ventricular rates. Echocardiogram obtained on this admission reveals impaired LV systolic function with ejection fraction 40-45%. Blood pressure 111/62 heart rate 88 afebrile maintaining oxygen saturation on nasal cannula. 24-hour urine output is 1775 mL. Laboratory data reviewed, WBC 6.2, hemoglobin 13.5, platelets 265, sodium 136, potassium 3.7, creatinine 0.72. Currently zia ntained on aspirin 81 mg daily, Lasix 40 mg IV twice a day, heparin infusion, Cardizem infusion lisinopril 2.5 mg daily, Lopressor 100 mg twice a day and hypokalemia protocol. 07/14/2021 Pt seen and examined sitting up in bed in no acute distress. He denies chest pain, shortness of breath, dizziness or palpitations. Blood pressure 140/82 heart rate 91 afebrile and maintaining oxygen saturation on room air. Daily labs pending. GENERAL: Well-appearing, well-nourished and in no acute distress. Obese. NECK: Supple without JVD or thyromegaly. LUNGS: Breath sounds clear to auscultation bilaterally. Respiration equal and unlabored. No wheezes, rales or rhonchi. Diminished bilaterally. HEART: Irregular rate and rhythm with systolic ejection murmur at the base, no rubs or gallops. S1 and S2 heard. EXTREMITIES: Normal range of motion, 1+ bilateral lower extremity pitting edema. No clubbing or cyanosis. Peripheral pulses intact. ASSESSMENT Acute systolic heart failure, EF 40-45% Paroxysmal atrial fibrillation with fluctuating ventricular rates, currently in afib. Hypertension Morbid obesity, BMI 50 PLAN Stable for discharge from a cardiac perspective. Follow up with Dr. Degroot in 1-2 weeks. Nurse Practitioner note has been reviewed, I agree with a documented findings and plan of care. Patient was seen and examined. Objective - Vital Signs Vital signs: Vital Signs Temp 98.2 F 07/14/21 07:30 Pulse 91 07/14/21 07:30 Resp 18 07/14/21 07:30 BP 140/82 07/14/21 07:30 Pulse Ox 95 07/14/21 07:30 Intake & Output 07/13/21 07/14/21 07/14/21 18:59 06:59 18:59 Intake Total 1343.04 250 Output Total 9603 998 5617 Balance -56.96 -150 -1200 Weight 162 kg Intake: IV 30 Invasive Line 3 30 Intake, IV Titration 453.04 250 Amount Heparin Sod,Pork in 0.45% 453.04 250 NaCl 25,000 unit In 0.45 % NaCl 1 250ml.bag @ 6.25 UNITS/KG/HR 10 mls/hr IV .Q24H [facility] Rx#:[id number] Oral 860 Output: Urine 6295 699 8923 Other: Voiding Method Urinal # Voids 1 - Labs CBC & Chem 7: 07/14/21 07:46 07/13/21 07:56 Labs: Abnormal Lab Results - Last 24 Hours (Table) 07/13/21 07/13/21 07/13/21 Range/Units 07:56 07:56 07:56 RBC 3.61 L (4.30-5.90) m/uL MCV 111.3 H (80.0-100.0) fL MCH 38.1 H (25.0-35.0) pg RDW 16.0 H (11.5-15.5) % Macrocytosis Marked A APTT 57.7 H (22.0-30.0) sec Sodium 135 L (137-145) mmol/L Carbon Dioxide 31 H (22-30) mmol/L Glucose 125 H (74-99) mg/dL
[2021-07-14 09:28] LABS: ALT 31 U/L (4-49); AST 39 U/L (17-59); African American GFR (CKD) >90 (>60 ml/min/1.73 sqM); Albumin 3.4 g/dL (3.5-5.0); Alkaline Phosphatase 78 U/L (38-126); Anion Gap 8 mmol/L; Blood Urea Nitrogen 16 mg/dL (9-20); Calcium 9.6 mg/dL (8.4-10.2); Carbon Dioxide 28 mmol/L (22-30); Chloride 100 mmol/L (98-107); Glucose 173 mg/dL (74-99); Non-African American GFR(CKD) >90 (>60 ml/min/1.73 sqM); Potassium 3.8 mmol/L (3.5-5.1); Sodium 136 mmol/L (137-145); Total Bilirubin 0.5 mg/dL (0.2-1.3)
[2021-07-14] MEDS: METOPROLOL TARTRATE 50 MG TAB PO SCH (10:11)
[2021-07-14] MEDS: FUROSEMIDE 40 MG TAB PO SCH (10:15)
[2021-07-14] MEDS ORDERED: WARFARIN 10 MG TAB PO ONE (18:00)
== END 2021-07-14 11:26 | disposition home or self-care (01) | DRG 308 ==
LOC: EC 11:37 → 3SCARD 13:16
PROVIDERS: ADMIT Family Medicine; ATTEND Family Medicine
DX: I48.19 Other persistent atrial fibrillation (principal); I50.21 Acute systolic (congestive) heart failure; Z68.43 Body mass index [BMI] 50.0-59.9, adult; E66.01 Morbid (severe) obesity due to excess calories; E78.5 Hyperlipidemia, unspecified; Z86.79 Personal history of other diseases of the circulatory system; I11.0 Hypertensive heart disease with heart failure; I35.0 Nonrheumatic aortic (valve) stenosis; Z79.01 Long term (current) use of anticoagulants; Z79.82 Long term (current) use of aspirin; Z79.899 Other long term (current) drug therapy; Z89.022 Acquired absence of left finger(s); Z87.81 Personal history of (healed) traumatic fracture
CPT/HCPCS: 36415; 71046; 80048; 80053; 80061; 82272; 83735; 83880; 84132; 84443; 84484; 85025; 85027; 85610; 85730; 93005; 93306; 94760; 96374; 99291

== ENCOUNTER 2021-10-07 08:44 | Day surgery (SDC) | payer MEDICARE ==
[2021-10-05 09:38] VITALS: BMI 46.7
[~2021-10-07 08:44] MED LIST changes: -APIXABAN 5 MG TAB PO SCH; -BENZOCAINE SPRAY 1 CAN MUCOUS MEM ONE; -LACTATED RINGERS 1,000 ML IV SCH; -METOPROLOL TARTRATE 12.5 MG TAB PO SCH; -PROPAFENONE 150 MG TAB PO SCH; -PROPOFOL 10 MG/ML 20 ML VIAL IV ONE
[2021-10-07 09:43] LABS: Calcium 9.9 mg/dL (8.4-10.2); Potassium 4.1 mmol/L (3.5-5.1)
[2021-10-07 09:54] LABS: INR 1.8 (<1.2); Prothrombin Time 17.9 sec (9.0-12.0)
[2021-10-07] MEDS ORDERED: LIDOCAINE 1% INJ 10MG/ML (20 ML MDV) ONE (10:24)
[2021-10-07] MEDS ORDERED: PROPOFOL 10 MG/ML 20 ML VIAL IV ONE (10:24)
[2021-10-07] MEDS ORDERED: BENZOCAINE SPRAY 1 CAN MUCOUS MEM ONE (10:38)
[2021-10-07 10:57] VITALS: TEMP 97
[2021-10-07] MEDS ORDERED: SODIUM CHLORIDE 0.9% 1,000 ML IV SCH (11:45)
[2021-10-07 12:17] VITALS: BP 116/67; PULSE 65; RESP 18
--- NOTE | 2021-10-07 14:25 | ECHOT ---
TRANSESOPHAGEAL ECHOCARDIOGRAM INDICATION: To rule out intracardiac thrombus in a patient who is to undergo cardioversion. PROCEDURE NOTE: After obtaining informed consent, transesophageal echocardiogram was performed in left lateral position using an Omni plane probe. Local and IV sedation were obtained by the loan originator. Color Doppler, spectral, 2D and M-mode analysis were performed. FINDINGS: 1. There is no intracardiac thrombus within the left atrial appendage, left atrium, right atrium, right ventricle or left ventricle. 2. Left atrium appears mildly enlarged. 3. Left ventricle has normal size and systolic function. 4. Right atrium and right ventricle normal. 5. Interatrial septum: There is no evidence of [id number]-[id number] shunt by color-flow Doppler or aflkj-ed-neaw shunt by agitated saline contrast study. 6. Aortic valve is a 3-leaflet valve. There is no evidence of aortic stenosis or regurgitation. 7. Mitral valve shows mild tricuspid regurgitation. 8. Mild mitral regurgitation. 9. Tricuspid valve shows mild tricuspid regurgitation. CONCLUSIONS: 1. No intracardiac thrombus. 2. Normal LV function. PLAN: Patient will undergo cardioversion. MMODL / IJN: [id number] /
--- NOTE | 2021-10-07 17:45 | PCN ---
PROCEDURE NOTE INDICATION: Persistent atrial fibrillation. PROCEDURE NOTE: After obtaining informed consent, patient was sedated by the stull hewer and underwent electrical cardioversion. He was shocked twice with a synchronized DC current at 150 and 200 joules following which he converted to sinus rhythm. He was adequately anticoagulated with Coumadin and INRs have been followed through my office and have been therapeutic. He will continue the Coumadin. RAMA / SHASTAN: [id number] /
== END 2021-10-07 12:31 | disposition home or self-care (01) ==
LOC: CATHCVL 08:44
PROVIDERS: ATTEND Internal Medicine Cardiovascular Disease
DX: I48.11 Longstanding persistent atrial fibrillation (principal); I34.0 Nonrheumatic mitral (valve) insufficiency; I36.1 Nonrheumatic tricuspid (valve) insufficiency; I11.0 Hypertensive heart disease with heart failure; I50.22 Chronic systolic (congestive) heart failure; Z79.899 Other long term (current) drug therapy; Z79.82 Long term (current) use of aspirin
CPT/HCPCS: 93312; 93320; 93005; 93325; 92960; 80048; 85610; 87635; J2001; J2704